=== PATIENT | female | born 1965 | race African-American/Black ===

== ENCOUNTER 2017-09-18 15:40 | Observation (INO) | payer OTHER, SELFPAY ==
--- OUTSIDE RECORDS SUMMARY | 2017-09-18 15:44 | XMS REPORT | Clinical Summary ---
:1965 Author Organization [facility] Address [address] [place] [address] Care Team Providers Name Role Phone Asked, No Pcp Primary Care Provider Unavailable Allergies Active Allergy Reactions Severity Noted Date Comments Hydrocodone 11/12/2016 Morphine 11/12/2016 Out of body experience Current Medications Prescription Sig. Disp. Refills Start Date End Date Status metoprolol succinate XL Take 50 mg by mouth Active (TOPROL-XL) 50 mg 24 hr 2 (two) times a tablet day. losartan-hydrochlorothiaz Take 1 tablet by Active lazaro (HYZAAR) 100-25 mg mouth daily. per tablet IRON FUM,PS/FOLIC Take by mouth. Active ACID/VITC/B3 (FOLIVANE-F ORAL) apixaban (ELIQUIS) 5 mg Take 5 mg by mouth Active tablet 2 (two) times a day. Active Problems Not on file Encounters Date Type Specialty Care Team Description 12/09/2016 Orders Only Cardiothoracic Surgery Alee Chaudhari MD 11/12/2016 Hospital Encounter Radiology Mina Holland MD 11/12/2016 Hospital Encounter Radiology Mina Holland MD 11/12/2016 Office Visit Cardiothoracic Surgery Mina Holland MD (Primary Dx) 11/12/2016 Ancillary Orders Mina Ortiz MD 11/12/2016 Ancillary Orders Mina Ortiz MD 11/10/2016 Orders Only Cardiothoracic Surgery Alee Chaudhari MD after 09/17/2016 Family History Medical History Relation Name Comments Diabetes Father Tarun Crohn's disease Sister Janet Colon cancer Sister Juvenal Relation Name Status Comments Father Tarun Sister Janet Sister Juvenal Social History Tobacco Use Types Packs/Day Years Used Date Current Every Day Smoker Cigarettes 0.25 5 Started: 07/08/2004 Tobacco Cessation: Counseling Given: Yes Alcohol Use Drinks/Week oz/Week Comments Yes 3 Cans of beer Sex Assigned at Date Recorded Not on file Last Filed Vital Signs Vital Sign Reading Time Taken Blood Pressure 142/90 11/12/2016 10:21 AM CDT Pulse 73 11/12/2016 10:21 AM CDT Temperature 35.9 C (96.7 F) 11/12/2016 10:21 AM CDT Respiratory Rate 18 11/12/2016 10:21 AM CDT Oxygen Saturation 96% 11/12/2016 10:21 AM CDT Inhaled Oxygen Concentration - - Weight 108 kg (238 lb 9.6 oz) 11/12/2016 10:21 AM CDT Height 157.5 cm (5' 2") 11/12/2016 10:21 AM CDT Body Mass Index 43.64 11/12/2016 10:21 AM CDT Plan of Treatment Health Maintenance Due Date Last Done Comments CERVICAL CANCER SCREENING 1988 BREAST CANCER SCREENING 2017 COLON CANCER SCREENING 2017 SHINGRIX VACCINE (#1) 2017 INFLUENZA VACCINE 10/06/2017 Procedures Procedure Name Priority Date/Time Associated Diagnosis Comments CT CHEST EXTERNAL Routine 12/08/2016 12:00 AM STUDY CDT PET CT WHOLE BODY Routine 10/28/2016 2:49 PM Results for this EXTERNAL STUDY CDT procedure are in the results section. CT CHEST EXTERNAL Routine 09/17/2016 8:05 AM Results for this STUDY CDT procedure are in the results section. CT CHEST EXTERNAL Routine 09/17/2016 12:00 AM STUDY CDT after 09/17/[address] Chest External Study (12/08/2016)Only the most recent of3 resultswithin the time period is included. Narrative Performed At PET/CT Whole Body External Study (10/28/2016 2:49 PM) Narrative Performed At This exam was not acquired at a [facility] facility and has not been [facility] interpreted by a [facility] Provider.The exam was imported into our imaging system for comparisons purposes. Performing Organization Address City/State/Zipcode Phone Number [facility] [address] [place] [address] after 09/17/2016
[2017-09-18] MEDS ORDERED: ASPIRIN 81 MG CHEWABLE TABLET ONE (16:40)
[2017-09-18] MEDS ORDERED: METOPROLOL TAR 50 MG TAB ONE (16:40)
[2017-09-18 16:46] LABS: Absolute Monocytes 0.4 K/uL (0.1-1.3); Absolute Neutrophil 1.8 K/uL (1.8-8.0); Basophils % 0.6 % (0-1.3); Eosinophils % 4.2 % (0-4.4); Hematocrit 39.8 % (36.0-45.0); Lymphocytes % 30.8 % (15.3-44.8); MCH 29.3 pg (27.0-35.0); MCV 89.1 fL (80-100); MPV 9.1 fL (7.6-11.3); Monocytes % 11.5 % (3.3-12.3); RBC Red Blood Cell Count 4.47 M/uL (3.86-4.86)
[2017-09-18 16:49] LABS: Protime INR 0.98
[2017-09-18 17:11] LABS: ALT/SGPT 25 U/L (12-78); AST/SGOT 23 U/L (15-37); Albumin 3.3 g/dL (3.4-5.0); Alkaline Phosphatase 108 U/L (45-117); BUN Blood Urea Nitrogen 14 mg/dL (7-18); Bicarbonate 32 mmol/L (21-32); Bilirubin Direct < 0.1 mg/dL (0-0.2); Bilirubin Total 0.2 mg/dL (0.2-1.0); CKMB Creatine Kinase MB 1.3 ng/mL (0.3-3.6); Creatine Phosphokinase 231 U/L (26-192); Glucose Level 92 mg/dL (74-106); Magnesium 2.4 mg/dL (1.8-2.4); NT PRO-BNP 465 pg/mL (<125); Potassium 3.3 mmol/L (3.5-5.1); Protein, Total 7.4 g/dL (6.4-8.2); Sodium Level 142 mmol/L (136-145)
--- NOTE | 2017-09-18 17:13 | RAD REPORT ---
EXAM DESCRIPTION: RAD - Chest Single View - 09/18/2017 5:03 pm CLINICAL HISTORY: Chest pain, shortness of breath COMPARISON: April 2016 TECHNIQUE: AP portable chest image was obtained 1626 hours . FINDINGS: Lung volumes are low. No peripheral mass or consolidation. Lung base infiltrates and atele ctasis can have a similar appearance. Significant failure or volume overload are doubtful. Heart and vasculature are normal. No measurable pleural effusion and no pneumothorax. No gross bony abnormality seen. No acute aortic findings suspected. IMPRESSION: Shallow inspiration film accentuates lung base markings. Atelectasis and infiltrate can have similar appearance.
--- NOTE | 2017-09-18 17:20 | RAD REPORT ---
EXAM DESCRIPTION: VAS - Extrem Venous W Compress Nemesio - 09/18/2017 5:15 pm CLINICAL HISTORY: Bilateral leg pain and swelling COMPARISON: None. TECHNIQUE: Real-time sonographic evaluation of the bilateral lower extremity deep venous systems was performed. FINDINGS: Normal compressibility, flow augmentation, phasic flow and spontaneous flow are identified in the left and right lower extremity common femoral, superficial femoral, popliteal and posterior t ibial veins. No intraluminal filling defects seen. IMPRESSION: No DVT in either lower extremity.
[2017-09-18] MEDS ORDERED: POTASSIUM CL SA 10 MEQ TAB PO ONE (17:51)
[2017-09-18] MEDS ORDERED: ALBUTEROL 2.5 MG/3 ML NEB SOL ONE (18:03)
[2017-09-18] MEDS ORDERED: IPRATROPIUM BROM 0.5MG/2.5ML ONE (18:03)
[2017-09-18] MEDS ORDERED: KETOROLAC 30 MG/ML INJ ONE (18:04)
[2017-09-18] MEDS ORDERED: METOPROLOL TARTRATE 5 MG/5 ML INJ IV ONE (18:04)
[2017-09-18 20:52] LABS: Urine Blood NEGATIVE (NEG); Urine Glucose NEGATIVE (NEG); Urine Protein 1+ (NEG); Urine Specific Gravity >1.030 (1.005-1.030); Urine pH 5.5 (5.0-7.0)
--- NOTE | 2017-09-18 20:54 | RAD REPORT ---
EXAM DESCRIPTION: CT - Chest For Pe Angio - 09/18/2017 8:34 pm CLINICAL HISTORY: Left-sided chest pain, shortness of breath COMPARISON: Chest films same date, PE study December 2016 TECHNIQUE: Dynamically enhanced 3 mm thick images of the chest were obtained during administration o f approximately 150mL Isovue 370 IV contrast. Coronal and oblique reconstruction images were generate d using maximum intensity projection techniqueand reviewed. Exam utilizes a protocol to evaluate the pulmonary arterial tree. All CT scans are performed using dose optimization technique as appropriate and may include automated exposure control or mA/KV adjustment according to patient size. FINDINGS: No pulmonary emboli are identified. The aorta as imaged shows no acute or suspicious finding. No pericardial thickening or effusion. Mild cardiomegaly suspected. No large mass or consolidation. Patchy airspace opacities are present in both lower lobes and in the right upper lobe. Minimal patchy opacification in the left upper lobe. No pleural effusion or pleural thickening. No mediastinal or hilar suspicious masses. No chest wall masses or abnormal axillary lymphadenopathy. IMPRESSION: No pulmonary emboli identified. Patchy airspace opacification is present scattered throughout all lobes.Patchy pneumonia and alveolar edema from cardiac decompensation can both have this pattern.
--- NOTE | 2017-09-18 21:14 | ER ---
Nurse's Notes [facility] Name: Yesenia Lawton Age: 52 yrs Sex: Female : 1965 Arrival Date: 09/18/2017 Time: 15:46 Bed 13 Private MD: Out, [facility] Diagnosis: Pulmonary edema;Dyspnea, unspecified;Orthopnea Presentation: 09/18 15:50 Presenting complaint: Patient states: left sided chest pain/tightness/pulling that sv started 2 days ago with SOB and radiation to the left arm and neck. c/o RLE pain and kannan knee pain and fluid. Transition of care: patient was not received from another setting of care. Onset of symptoms was September 16, 2017. Care prior to arrival: None. 15:50 Method Of Arrival: Wheelchair sv 15:50 Acuity: JOSSELYN 3 sv 21:34 Risk Assessment: Do you want to hurt yourself or someone else? Patient reports no bp desire to harm self or others. Initial Sepsis Screen: Does the patient meet any 2 criteria? No. Patient's initial sepsis screen is negative. Does the patient have a suspected source of infection? No. Patient's initial sepsis screen is negative. Triage Assessment: 19:00 General: Appears in no apparent distress. comfortable, obese, Behavior is calm, bp cooperative, appropriate for age. Respiratory: Reports shortness of breath the patient has mild shortness of breath. OFFICE ADMINISTRATION: 16:00 LMP N/A - Post-menopause rb1 Historical: - Allergies: 15:57 HYDROCODONE; sv 15:57 Vicodin; sv - Home Meds: 15:57 metoprolol tartrate Oral [Active]; losartan oral oral [Active]; Iron CR Oral [Active]; sv ibuprofen 800 mg Oral tab daily [Active]; - PMHx: 15:57 Anxiety; Hypertension; mass on heart; PE on right lung; sv - PSHx: 15:57 None; sv - Immunization history:: Adult Immunizations up to date. - Social history:: Smoking status: Patient uses tobacco products, denies chronic smoking, but will smoke occasionally. - Ebola Screening: : No symptoms or risks identified at this time. Screenin:00 Abuse screen: Denies threats or abuse. Nutritional screening: No deficits noted. rb1 Tuberculosis screening: No symptoms or risk factors identified. Fall Risk None identified. Assessment: 16:00 General: Appears in no apparent distress. comfortable, obese, Behavior is calm, rb1 cooperative, Reports fever for. Pain: Complains of pain in left calf Pain currently is 10 out of 10 on a pain scale. Pain began x 1 week. Neuro: Level of Consciousness is awake, alert, obeys commands, Oriented to person, place, time, situation. Cardiovascular: Capillary refill < 3 seconds is brisk in bilateral fingers. Respiratory: Airway is patent Respiratory effort is even, unlabored, Respiratory pattern is regular, symmetrical. GI: No signs and/or symptoms were reported involving the gastrointestinal system. : No signs and/or symptoms were reported regarding the genitourinary system. Derm: Skin is dry, Skin is normal, Skin temperature is warm. 17:00 Reassessment: Patient appears in no apparent distress at this time. No changes from rb1 previously documented assessment. Friend at bedside. 17:53 Reassessment: Patient appears in no apparent distress at this time. Patient and/or rb1 family updated on plan of care and expected duration. Pain level reassessed. Patient is alert, oriented x 3, equal unlabored respirations, skin warm/dry/pink. Pt. updated on POC. 18:17 Reassessment: Patient appears in no apparent distress at this time. Patient and/or rb1 family updated on plan of care and expected duration. Pain level reassessed. Patient is alert, oriented x 3, equal unlabored respirations, skin warm/dry/pink. 19:00 Reassessment: RECD REPORT FROM CHITO DEXTER. 52YO BF P/W SOB/CP. UOP AND CT PENDING. VS bp STABLE ON MONITOR. 21:00 Cardiovascular: Rhythm is sinus rhythm. Respiratory: Breath sounds with crackles bp bilaterally. 22:00 Reassessment: PT SEEN BY ADMIT MD, ADMIT IN PROCESS. bp Vital Signs: 15:50 BP 188 / 122; Pulse 90; Resp 22; Pulse Ox 95% ; Weight 106.14 kg; Height 5 ft. 3 in. sv (160.02 cm); Pain 10/10; 16:30 BP 158 / 113; Pulse 81; Resp 20; Pulse Ox 99% on R/A; rb1 17:30 BP 183 / 105; Pulse 68; Resp 19; Pulse Ox 98% on 4 lpm NC; rb1 18:00 BP 175 / 103; Pulse 77; Resp 20; Pulse Ox 92% on R/A; rb1 19:00 BP 168 / 88; Pulse 93; Resp 23; Pulse Ox 98% ; bp 21:00 BP 167 / 103; Pulse 91; Resp 14; Pulse Ox 95% ; bp 22:00 BP 141 / 81; Pulse 93; Resp 14; Pulse Ox 96% ; bp 23:00 BP 145 / 85; Pulse 91; Resp 14; Pulse Ox 96% ; bp 15:50 Body Mass Index 41.45 (106.14 kg, 160.02 cm) sv 18:00 Administered Nebulizer rb1 ED Course: 15:46 Patient arrived in ED. sb2 15:46 Out, of Town is Private Physician. sb2 15:56 Adolfo Sood PA is PHCP. cp 15:56 Adolfo Zapata MD is Attending Physician. cp 15:56 Triage completed. sv 16:00 Patient has correct armband on for positive identification. Placed in gown. Bed in low rb1 position. Call light in reach. Side rails up X 1. gambling monitor on. Pulse ox on. NIBP on. 16:01 Inserted saline lock: 22 gauge in right antecubital area, using aseptic technique. ss Blood collected. 16:29 Chito De La Fuente, RN is Primary Nurse. rb1 17:03 XRAY Chest (1 view) In Process Unspecified. EDMS 17:15 US Extremity Venous W Compression Kannan In Process Unspecified. EDMS 19:00 Report given to GUEIRTA Wood. rb1 19:00 Arm band placed on. bp 20:[address] via wheelchair. cw1 20:33 CT completed. Patient moved back from CT. cw1 20:34 CT Chest For PE Angio In Process Unspecified. EDMS 21:12 Israel Mathur, RN is Primary Nurse. bp 21:13 Malik Franco MD is Hospitalizing Provider. cp 21:14 Urine --Ancillary (enter results) Sent. bp 21:14 Urine Dipstick--Ancillary (enter results) Sent. bp 21:33 No provider procedures requiring assistance completed. Patient admitted, IV remains in bp place. Administered Medications: 16:35 Drug: Metoprolol 50 mg Route: PO; rb1 17:00 Follow up: Response: No adverse reaction; Blood pressure is unchanged rb1 16:35 Drug: Aspirin Chewable Tablet 324 mg Route: PO; rb1 17:00 Follow up: Response: No adverse reaction rb1 17:50 Drug: Potassium Chloride 40 mEq Route: PO; rb1 21:14 Follow up: Response: No adverse reaction bp 18:00 Drug: Lopressor 5 mg Route: IVP; Site: right antecubital; rb1 21:13 Follow up: Response: No adverse reaction; Marked relief of symptoms bp 18:00 Drug: TORadol 30 mg Route: IVP; Site: right antecubital; rb1 21:13 Follow up: Response: No adverse reaction bp 18:00 Drug: Albuterol - atroVENT (3:1) (2.5 mg - 0.5 mg) 3 ml Route: Nebulizer; rb1 21:14 Follow up: Response: No adverse reaction bp 21:30 Drug: Lasix 20 mg Route: IVP; Site: right antecubital; bp 22:13 Follow up: Response: No adverse reaction bp 21:45 Drug: fentaNYL (PF) 25 mcg Route: IVP; Site: right antecubital; bp 22:13 Follow up: Response: Pain is decreased bp Outcome: 21:14 Decision to Hospitalize by Provider. cp 23:46 Admitted to Tele accompanied by tech, via wheelchair, room 403, with chart, Report bp called to NICOLAS DEXTER 23:46 Condition: stable 23:46 Instructed on the need for admit. 09/19 00:08 Patient left the ED. bp Signatures: Dispatcher [employer] Natasha Tyson RN Asia Hodge RN RN ss Woodley, Crystal cw1 Adolfo Sood PA PA cp Chito De La Fuente, RN RN rb1 Israel Mathur RN RN Radha Carlson sb2
--- NOTE | 2017-09-18 21:14 | EDPHYS ---
Physician Documentation [facility] Name: Yesenia Lawton Age: 52 yrs Sex: Female : 1965 Arrival Date: 09/18/2017 Time: 15:46 Bed 13 Private MD: Out, [facility] ED Physician Adolfo Zapata HPI: 09/18 16:04 This 52 yrs old Black Female presents to ER via Wheelchair with complaints of Shortness cp Of Breath, Chest Pressure, Arm Pain, Leg Pain. 16:05 The patient or guardian reports chest pain that is located primarily in the anterior cp chest wall. 16:05 The patient has shortness of breath that woke him/her from sleep. Duration: The cp symptoms are continuous, and are steadily getting worse. The patient's shortness of breath is aggravated by exertion, supine position. Onset: 2 day(s) ago. The pain radiates to left neck. Associated signs and symptoms: Pertinent negatives: productive cough, diaphoresis, fever. The chest pain is described as tightness. 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 - Social history:: Smoking status: Patient uses tobacco products, denies chronic smoking, but will smoke occasionally. - Ebola Screening: : No symptoms or risks identified at this time. ROS: 16:10 Constitutional: Negative for body aches, chills, fever, poor PO intake. cp 16:10 Eyes: Negative for injury, pain, redness, and discharge. cp 16:10 ENT: Negative for drainage from ear(s), ear pain, sore throat, difficulty swallowing, difficulty handling secretions. 16:10 Cardiovascular: Positive for chest pain, Negative for edema, palpitations. 16:10 Respiratory: Positive for dyspnea on exertion, orthopnea, shortness of breath, on exertion. Negative for cough, wheezing. 16:10 Abdomen/GI: Negative for abdominal pain, nausea, vomiting, and diarrhea, constipation, black/tarry stool, rectal bleeding. 16:10 Back: Negative for pain at rest, pain with movement, radiated pain. 16:10 : Negative for urinary symptoms. 16:10 MS/extremity: Negative for injury or acute deformity, decreased range of motion, deformity, paresthesias, tenderness. 16:10 Skin: Negative for cellulitis, rash. 16:10 Neuro: Negative for altered mental status, headache, syncope, near syncope, weakness. 16:10 All other systems are negative. Exam: 16:08 ECG was reviewed by the Attending Physician. cp 16:13 Constitutional: The patient appears in no acute distress, alert, awake, cp non-diaphoretic, non-toxic, well developed, well nourished. 16:13 Head/Face: Normocephalic, atraumatic. Eyes: Pupils equal round and reactive to light, cp extra-ocular motions intact. Lids and lashes normal. Conjunctiva and sclera are non-icteric and not injected. Cornea within normal limits. Periorbital areas with no swelling, redness, or edema. ENT: Nares patent. No nasal discharge, no septal abnormalities noted. Tympanic membranes are normal and external auditory canals are clear. Oropharynx with no redness, swelling, or masses, exudates, or evidence of obstruction, uvula midline. Mucous membranes moist. Neck: Trachea midline, no thyromegaly or masses palpated, and no cervical lymphadenopathy. Supple, full range of motion without nuchal rigidity, or vertebral point tenderness. No Meningismus. Chest/axilla: Normal chest wall appearance and motion. Nontender with no deformity. No lesions are appreciated. 16:13 Cardiovascular: Rate: normal, Rhythm: regular, Edema: is not appreciated, JVD: is not appreciated. 16:13 Respiratory: the patient does not display signs of respiratory distress, Respirations: normal, no use of accessory muscles, no retractions, no splinting, no tachypnea, labored breathing, is not present, Breath sounds: are clear throughout, no decreased breath sounds, no stridor, no wheezing. 16:13 Abdomen/GI: Inspection: abdomen appears normal, Bowel sounds: active, all quadrants, Palpation: abdomen is soft and non-tender, in all quadrants, rebound tenderness, is not appreciated, voluntary guarding, is not appreciated, involuntary guarding, is not appreciated. 16:13 Musculoskeletal/extremity: Extremities: grossly normal except: noted in the left calf: pain, tenderness, noted in the right calf: tenderness. 16:13 Skin: cellulitis, is not appreciated, no rash present. 16:13 Neuro: Orientation: to person, place \T\ time. Mentation: lucid, able to follow commands, Cerebellar function: is grossly normal, Motor: moves all fours, strength is normal, Sensation: no obvious gross deficits. 22:18 ECG was reviewed by the Attending Physician. cp Vital Signs: 15:50 BP 188 / 122; Pulse 90; Resp 22; Pulse Ox 95% ; Weight 106.14 kg; Height 5 ft. 3 in. sv (160.02 cm); Pain 10/10; 16:30 BP 158 / 113; Pulse 81; Resp 20; Pulse Ox 99% on R/A; rb1 17:30 BP 183 / 105; Pulse 68; Resp 19; Pulse Ox 98% on 4 lpm NC; rb1 18:00 BP 175 / 103; Pulse 77; Resp 20; Pulse Ox 92% on R/A; rb1 19:00 BP 168 / 88; Pulse 93; Resp 23; Pulse Ox 98% ; bp 21:00 BP 167 / 103; Pulse 91; Resp 14; Pulse Ox 95% ; bp 22:00 BP 141 / 81; Pulse 93; Resp 14; Pulse Ox 96% ; bp 23:00 BP 145 / 85; Pulse 91; Resp 14; Pulse Ox 96% ; bp 15:50 Body Mass Index 41.45 (106.14 kg, 160.02 cm) sv 18:00 Administered Nebulizer rb1 MDM: 15:57 Patient medically screened. cp 17:08 ED course: Received verbal report from [employer] Mayra bustillo, that bilateral LE DVT studies cp negative. 21:05 Data reviewed: vital signs, nurses notes, lab test result(s), EKG, radiologic studies, cp CT scan, plain films. 21:05 Differential diagnosis: asthma, Bronchitis CHF exacerbation, Chronic Obstructive cp Pulmonary Disease abnormal EKG, acute myocardial infarction, acute pericarditis, chest wall pain, Myocardial Infarction pneumonia, pulmonary edema. Test interpretation: by ED physician or midlevel provider: ECG, plain radiologic studies. 21:12 The patient was given aspirin in the Emergency Department. Physician consultation: roxanne Franco MD was called at 21:13, was contacted at 21:13, regarding admission, to the telemetry unit. patient's condition. 09/18 16:13 Order name: Basic Metabolic Panel; Complete Time: 17:14 cp 09/18 17:14 Interpretation: Normal except: K 3.3; GFR 80. cp 09/18 16:13 Order name: CBC with Diff; Complete Time: 17:14 cp 09/18 17:15 Interpretation: Normal except: WBC 3.4; MCV 89.1; MCH 29.3. cp 09/18 16:13 Order name: Ckmb; Complete Time: 17:14 cp 09/18 16:13 Order name: CPK; Complete Time: 17:14 cp 09/18 18:12 Interpretation: Abnormal: CPK 231. cp 09/18 16:13 Order name: LFT's; Complete Time: 17:14 cp 09/18 18:12 Interpretation: Normal except: ALB 3.3; GLOB 4.1; A/G 0.8. cp 09/18 16:13 Order name: Magnesium; Complete Time: 17:14 cp 09/18 16:13 Order name: NT PRO-BNP; Complete Time: 17:14 cp 09/18 17:15 Interpretation: Abnormal: NT PRO-BNP 465. cp 09/18 16:13 Order name: PT-INR; Complete Time: 17:14 cp 09/18 16:13 Order name: Ptt, Activated; Complete Time: 17:14 cp 09/18 16:13 Order name: Troponin (emerg Dept Use Only); Complete Time: 17:14 cp 09/18 18:14 Interpretation: TROPED < 0.02; Reviewed. cp 09/18 17:17 Order name: D-Dimer; Complete Time: 17:46 cp 09/18 18:12 Interpretation: Abnormal: D-DIMER 743. cp 09/18 17:17 Order name: LAB Add On cp 09/18 19:27 Order name: Troponin I: repeat \T\2000 cp 09/18 20:16 Order name: Urine Dipstick--Ancillary (enter results) eb 09/18 15:55 Order name: EKG; Complete Time: 15:55 sv 09/18 16:13 Order name: XRAY Chest (1 view); Complete Time: 17:14 cp 09/18 16:13 Order name: US Extremity Venous W Compression Nemesio; Complete Time: 17:46 cp 09/18 17:38 Order name: CT Chest For PE Angio; Complete Time: 20:59 cp 09/18 19:27 Order name: EKG: repeat \T\1999; Complete Time: 19:28 cp 09/18 20:16 Order name: Urine --Ancillary (enter results) eb 09/18 20:17 Order name: Urine Dipstick-Ancillary; Complete Time: 20:59 EDMS 09/18 20:17 Order name: Urine --Ancillary; Complete Time: 20:59 EDMS 09/18 15:55 Order name: EKG - Nurse/Tech; Complete Time: 16:00 sv 09/18 16:13 Order name: Cardiac monitoring; Complete Time: 19:04 cp 09/18 16:13 Order name: IV Saline Lock; Complete Time: 16:42 cp 09/18 16:13 Order name: Labs collected and sent; Complete Time: 16:42 cp 09/18 16:13 Order name: O2 Per Protocol; Complete Time: 16:45 cp 09/18 16:13 Order name: O2 Sat Monitoring; Complete Time: 16:45 cp 09/18 16:13 Order name: Urine Dipstick-Ancillary (obtain specimen); Complete Time: 22:14 cp 09/18 16:13 Order name: Urine Test (obtain specimen); Complete Time: 22:14 cp 09/18 19:27 Order name: EKG - Nurse/Tech: repeat \T\1999; Complete Time: 22:12 cp EC:08 Rate is 85 beats/min. Rhythm is regular. DC interval is normal. QRS interval is normal. cp QT interval is normal. T waves are Inverted in lead III. Interpreted by me. Reviewed by me. 22:18 Rate is 71 beats/min. Rhythm is regular. DC interval is normal. QRS interval is normal. cp QT interval is normal. No ST changes noted. Interpreted by me. Reviewed by me. Administered Medications: 16:35 Drug: Metoprolol 50 mg Route: PO; rb1 17:00 Follow up: Response: No adverse reaction; Blood pressure is unchanged rb1 16:35 Drug: Aspirin Chewable Tablet 324 mg Route: PO; rb1 17:00 Follow up: Response: No adverse reaction rb1 17:50 Drug: Potassium Chloride 40 mEq Route: PO; rb1 21:14 Follow up: Response: No adverse reaction bp 18:00 Drug: Lopressor 5 mg Route: IVP; Site: right antecubital; rb1 21:13 Follow up: Response: No adverse reaction; Marked relief of symptoms bp 18:00 Drug: TORadol 30 mg Route: IVP; Site: right antecubital; rb1 21:13 Follow up: Response: No adverse reaction bp 18:00 Drug: Albuterol - atroVENT (3:1) (2.5 mg - 0.5 mg) 3 ml Route: Nebulizer; rb1 21:14 Follow up: Response: No adverse reaction bp 21:30 Drug: Lasix 20 mg Route: IVP; Site: right antecubital; bp 22:13 Follow up: Response: No adverse reaction bp 21:45 Drug: fentaNYL (PF) 25 mcg Route: IVP; Site: right antecubital; bp 22:13 Follow up: Response: Pain is decreased bp Disposition: 09/19 06:49 Co-signature as Attending Physician, Adolfo Zapata MD I agree with the assessment and [facility] plan of care. Disposition: 09/18/17 21:14 Hospitalization ordered by Malik Franco for Observation. Preliminary diagnosis are Pulmonary edema, Dyspnea, unspecified, Orthopnea. - Bed requested for Telemetry/MedSurg (observation). - Status is Observation. bp - Condition is Stable. - Problem is new. - Symptoms have improved. UTI on Admission? No Signatures: Dispatcher [employer] Yesenia Padilla RN RN kl Verde, Stephanie, RN RN sv Anderson, Corey, MD MD cha Page, Corey, PA PA cp Barber, Rebecca RN RN Israel Fairchild RN RN bp Corrections: (The following items were deleted from the chart) 09/18 21:13 21:12 Physician consultation: Malik Franco MD [facility] 22:11 21:14 Hospitalization Ordered by Malik Franco MD for Observation. Preliminary kl diagnosis is Pulmonary edema; Dyspnea, unspecified; Orthopnea. Bed requested for Telemetry/MedSurg (observation). Status is Observation. Condition is Stable. Problem is new. Symptoms have improved. UTI on Admission? No. cp 09/19 00:08 09/18 22:11 09/18/2017 21:14 Hospitalization Ordered by Malik Franco MD for bp Observation. Preliminary diagnosis is Pulmonary edema; Dyspnea, unspecified; Orthopnea. Bed requested for Telemetry/MedSurg (observation). Status is Observation. Condition is Stable. Problem is new. Symptoms have improved. UTI on Admission? No. kl
[2017-09-18] MEDS ORDERED: FUROSEMIDE 20 MG/ 2ML VIAL ONE (21:21)
[2017-09-18] MEDS ORDERED: FENTANYL CITR 100 MCG/2 ML ONE (21:53)
--- NOTE | 2017-09-18 22:50 | P.HP ---
Certification for Inpatient Patient admitted to: Inpatient With expected LOS: >2 Midnights Practitioner: I am a practitioner with admitting privileges, knowledge of patient current condition, hospital course, and medical plan of care. Services: Services provided to patient in accordance with Admission requirements found in Title 42 Section 412.3 of the Code of Federal Regulations Patient History Date of Service: 09/18/17 Reason for admission: dyspnea History of Present Illness: Ms Lawton is a 52 yers old woman with history of HTN, PE, who start about 3 days ago with progressive SOB associated with productive cough. Her secretions are yellowish. She denied fever but has had chills. She states that is not able to sleep flat, and is using about 3 pillows. She is also complaining of left calf pain. The patient has had tightness in her chest as sell, lasting for 20 minutes, radiated to her neck and left arm. No nausea, diaphoresis or dizzines associated. Lab work shows WBC 3.4K, D-dimer was elevated, CTA shows no PE but bilateral patchy infiltrate. The patient is afebrile in ER, O2 sat 92% on RA. Allergies hydrocodone Allergy (Verified 05/05/16 16:55) Unknown morphine Allergy (Verified 05/06/16 18:37) Nausea/Vomiting Home medications list reviewed: Yes Home Medications: Citalopram [Celexa*] 20 mg PO DAILY 05/05/16 Losartan Potassium [Cozaar*] 50 mg PO BID 05/05/16 Metoprolol Tartrate 50 mg PO BID 05/05/16 Apixaban [Eliquis] 5 mg PO BID #60 tablet 05/07/16 ALPRAZolam [Xanax*] 0.5 mg PO TID PRN #21 tab 05/08/16 Fluticasone/Salmeterol [Advair 250/50 Diskus*] 1 puff IH BID disk 05/08/16 hydroCHLOROthiazide [Hydrochlorothiazide*] 12.5 mg PO DAILY #30 cap 05/08/16 - Past Medical/Surgical History Diabetic: No -: Hypertension -: Anemia -: PE -: Tubal ligation Psychosocial/ Personal History: She is single, has 4 children. 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 - Family History Mother -: Heart disease, Hypertension, GI disease, Diabetes, Cancer Sister -: GI disease, Cancer - Social History Smoking Status: Light Tobacco smoker (1-9 cigarettes/day) Counseled patient to stop smoking for: less than 10 minutes Smoking therapy provided: Yes Patient receptive to therapy: No Alcohol use: Yes CD- Drugs: No Caffeine use: Yes Place of Residence: Home Review of Systems 10-point ROS is otherwise unremarkable Physical Examination - Physical Exam General: Alert, In no apparent distress HEENT: Atraumatic, PERRLA, Mucous membr. moist/pink, EOMI, Sclerae nonicteric Neck: Supple, 2+ carotid pulse no bruit, No LAD, Without JVD or thyroid abnormality Respiratory: Diminished, Crackles/rales (bibasilar crackles), Expiratory wheezes Cardiovascular: Regular rate/rhythm, Normal S1 S2 Gastrointestinal: Normal bowel sounds, No tenderness Musculoskeletal: No tenderness Integumentary: No rashes Neurological: Normal speech, Normal strength at 5/5 x4 extr, Normal tone, Normal affect Lymphatics: No axilla or inguinal lymphadenopathy - Studies Laboratory Data (last 24 hrs) 09/18/17 20:45: Troponin I < 0.02 09/18/17 16:00: PT 11.6, INR 0.98, APTT 26.0 09/18/17 16:00: WBC 3.4 L, Hgb 13.1, Hct 39.8, Plt Count 218 09/18/17 16:00: Sodium 142, Potassium 3.3 L, BUN 14, Creatinine 0.90, Glucose 92 , Magnesium 2.4, Total Bilirubin 0.2, AST 23, ALT 25, Alkaline Phosphatase 108 Assessment and Plan - Problems (Diagnosis) (1) Dyspnea Current Visit: Yes Status: Acute (2) Pneumonia Current Visit: Yes Status: Acute Qualifiers: Pneumonia type: due to unspecified organism Laterality: bilateral Lung location: lower lobe of lung Qualified Code(s): J18.1 - Lobar pneumonia, unspecified organism (3) Tobacco abuse Current Visit: No Status: Chronic - Plan The patient will be admitted to the hospital due to progressive dyspnea likely due to pneumonia. Will order an ECHO to evaluate cardiac function due to possible CHF. Previous CT chest was remarkable for a mediastinal mass, which is not seen in this current CT scan. Will order blood and sputum culture. Empiric IV antibiotics, breathing treatments as well. serial troponin I and EKG. Consult Cardiology for recurrent chest pain episodes. - Advance Directives Does patient have a Living Will: No Does patient have a Durable POA for Healthcare: No - Code Status/Comfort Care Code Status Assessed: Yes Code Status: Full Code
[2017-09-18] MEDS ORDERED: ACETAMINOPHEN 500 MG TAB PO PRN (23:45)
[2017-09-18] MEDS ORDERED: ONDANSETRON 4 MG/2 ML VIAL IV PRN (23:45)
[2017-09-19] MEDS: IPRATROPIUM BROM 0.5MG/2.5ML NEB SCH ×7 (00:05→23:01)
[2017-09-19] MEDS: ALBUTEROL 2.5 MG/3 ML NEB SOL NEB SCH ×7 (00:05→23:01)
[2017-09-19] MEDS ORDERED: NA CHLORIDE 0.9% 1,000 ML ONE (01:15)
[2017-09-19] MEDS ORDERED: DICYCLOMINE HCL 10 MG CAP ONE (01:15)
[2017-09-19] MEDS: TRAMADOL HCL 50 MG TAB PO PRN ×3 (01:31→20:58)
[2017-09-19 05:31] LABS: Absolute Lymphocytes (CBC) 1.1 K/uL (0.7-4.9); Absolute Monocytes 0.3 K/uL (0.1-1.3); Absolute Neutrophil 1.4 K/uL (1.8-8.0); Basophils % 0.5 % (0-1.3); Eosinophils % 5.6 % (0-4.4); Hematocrit 39.4 % (36.0-45.0); Lymphocytes % 36.5 % (15.3-44.8); MPV 8.6 fL (7.6-11.3); Monocytes % 11.1 % (3.3-12.3); RBC Red Blood Cell Count 4.43 M/uL (3.86-4.86)
[2017-09-19 05:47] LABS: Potassium 3.2 mmol/L (3.5-5.1)
[2017-09-19] MEDS ORDERED: POTASSIUM 25 MEQ EFFERV TAB PO ONE (06:25)
[2017-09-19] MEDS: APIXABAN 5 MG TABLET PO SCH ×2 (08:30→20:59)
[2017-09-19] MEDS: AZITHROMYCIN IV 500 MG in NA CHLORIDE 0.9% 250 ML IVPB SCH (08:31)
[2017-09-19] MEDS: CEFTRIAXONE/SWI 1gm 1 GM/10 ML SYR IVP SCH (08:31)
[2017-09-19] MEDS ORDERED: CEFTRIAXONE 1 GM/NS 50 ML 1 GM/50 ML BAG IV SCH (09:00)
--- NOTE | 2017-09-19 09:29 | EKG ---
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
--- NOTE | 2017-09-19 09:30 | EKG ---
Test Date: 2017-09-18 Test Time: 16:00:15 Store Shopper: MARK MEASUREMENT RESULTS: Intervals: Rate: 85 TN: 136 QRSD: 72 QT: 368 QTc: 437 [place]: P: 68 TN: 136 QRS: 33 T: 8 INTERPRETIVE STATEMENTS: Normal sinus rhythm Normal ECG Compared to ECG 05/05/2016 08:28:08 Sinus bradycardia no longer present ST (T wave) deviation no longer present Electronically Signed On 09-19-17 09:28:03 CDT by Nick Holland
[2017-09-19] MEDS: METOPROLOL TAR 50 MG TAB PO SCH ×2 (10:05→20:59)
[2017-09-19] MEDS: LOSARTAN POTASSIUM 50 MG TABLET PO SCH (10:06)
[2017-09-19] MEDS: LOSARTAN/HCTZ 50-12.5 PO SCH (10:06)
--- NOTE | 2017-09-19 12:57 | P.PN ---
Subjective Date of Service: 09/19/17 Chief Complaint: dyspnea Subjective: No new changes, No C/O voiced, Doing well Review of Systems General: As per HPI Physical Examination - Vital Signs Temperature: 97.0 F Blood Pressure: 166/93 Pulse: 67 Respirations: 18 Pulse Ox (%): 98 - Physical Exam General: Alert, Oriented x3, Mild distress HEENT: Atraumatic, PERRLA, EOMI Neck: Supple, JVD not distended Respiratory: Normal air movement, Crackles/rales, Expiratory wheezes, Inspiratory wheezes Cardiovascular: Regular rate/rhythm, Normal S1 S2 Gastrointestinal: Normal bowel sounds, Soft and benign, Non-distended, No tenderness Musculoskeletal: No tenderness Integumentary: No rashes Neurological: Normal speech, Normal tone, Normal affect Lymphatics: No axilla or inguinal lymphadenopathy - Studies Laboratory Data (last 24 hrs) 09/18/17 20:45: Troponin I < 0.02 09/18/17 16:00: PT 11.6, INR 0.98, APTT 26.0 09/18/17 16:00: WBC 3.4 L, Hgb 13.1, Hct 39.8, Plt Count 218 09/18/17 16:00: Sodium 142, Potassium 3.3 L, BUN 14, Creatinine 0.90, Glucose 92 , Magnesium 2.4, Total Bilirubin 0.2, AST 23, ALT 25, Alkaline Phosphatase 108 Medications List Reviewed: Yes Assessment & Plan - Problems (Diagnosis) (1) Dyspnea Current Visit: Yes Status: Acute Plan: Dyspnea with Orthopnea. Most likely CHF exacerbation -Cardiology consulted. Appreciated Reccs -On oxygen, Duonebs for now -Xray with Concerns for PNA. Sputum Cutlure pending. On Azithromycin for now -Will f.u with Culture and Cards -Pulmonology unavailable at this time. Qualifiers: Dyspnea type: orthopnea Qualified Code(s): R06.01 - Orthopnea (2) CHF (congestive heart failure) Onset Date: 05/06/16 Current Visit: No Status: Acute Plan: Acute CHF exacerbation. -ECHO pending -Stress test scheduled as well -Cardiology consulted -IV lasix Qualifiers: Heart failure type: unspecified Heart failure chronicity: acute on chronic Qualified Code(s): I50.9 - Heart failure, unspecified (3) GERD (gastroesophageal reflux disease) Current Visit: No Status: Chronic Qualifiers: Esophagitis presence: esophagitis presence not specified Qualified Code(s) : K21.9 - Gastro-esophageal reflux disease without esophagitis (4) Hypertension Current Visit: No Status: Chronic Qualifiers: Hypertension type: essential hypertension Qualified Code(s): I10 - Essential (primary) hypertension (5) Tobacco abuse Current Visit: No Status: Chronic Discharge Plan: Home Plan to discharge in: 48 Hours - Code Status/Comfort Care Code Status Assessed: Yes Critical Care: No
--- NOTE | 2017-09-19 14:22 | CON ---
Date of Consultation: 09/19/[address] Burkett's service on 09/18/2017. I saw the patient on 09/19/2017. Reason For Consultation: Chest pain and shortness of breath. History Of Present Illness: Ms. Lawton is a 52-year-old black woman who has a history of COPD, hyper tension. She has a history of pulmonary embolus in May of 2016. She had a negative echocardiogram , then has been on Eliquis since. Comes in with multiple complaints including chest pain that is pre ssure like sensation, radiating to the neck and posteriorly. She also had left arm pain, left leg pa in, muscle cramps in both legs. Has been having some difficulty with her chronic obstructive pulmona ry disease. Has been taking her inhalers on a regular basis. Came in with negative troponin. 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 She had a CT angiogram, which was negative. Her D-dimer was elevated. S he had a white count of 3.1. She was hypertensive at 170/90. Denied PND, orthopnea, pedal edema, pa lpitations, or syncope. Allergies: SHE IS ALLERGIC TO VICODIN AND HYDROCODONE. Social History: Positive for tobacco. Family History: Positive for heart disease. Review of Systems: Negative. Medications At Home: Supposed to be metoprolol, Hyzaar inhalers, and Eliquis. Physical Examination: General: She was hypertensive, slightly anxious. No pain reported. Then she is in sinus rhythm. HEENT: Negative. Neck: Supple without any bruit, lymphadenopathy, JVD, or thyromegaly. Chest: Clear to auscultation and percussion. Cardiac: Revealed a regular rhythm and rate without any murmurs, gallops, or rubs. Abdomen: Benign. Extremities: Revealed no clubbing, cyanosis, or edema. Diagnostic Data: As stated earlier. EKG was unremarkable. Chest x-ray is unremarkable. Impression And Plan: Atypical chest pain in that it is radiating to the posterior neck and also had left and right leg pain with it, which is very unusual from a cardiac standpoint. She is at high ris k of heart disease. She has hypertension. She smokes, has a family history. Has had a history of P E before for which she is taking Eliquis still. I recommend to do an echocardiogram and a Lexiscan o n her before a final decision is made. Her blood pressure is elevated. We need to resume her metopr olol and Hyzaar. Her potassium of 3.2 may have contributed to some of the leg pain. This probably i s secondary to the inhaler therapy. Her D-dimer was elevated with negative CTA and her white count i s slightly on the low side and that need to be addressed. Should be at least followed up in the near future. I will follow the patient along. RADHAMES/ELAINE Voice ID: [id number] Report ID: [id number]
[2017-09-19] MEDS ORDERED: POTASSIUM CL SA 10 MEQ TAB PO ONE (16:00)
[2017-09-20 04:21] LABS: BUN Blood Urea Nitrogen 15 mg/dL (7-18); Bicarbonate 33 mmol/L (21-32); Glucose Level 104 mg/dL (74-106); Potassium 3.8 mmol/L (3.5-5.1); Sodium Level 142 mmol/L (136-145)
[2017-09-20] MEDS ORDERED: POTASSIUM CL SA 10 MEQ TAB PO ONE (04:25)
[2017-09-20] MEDS: ALBUTEROL 2.5 MG/3 ML NEB SOL NEB SCH ×2 (05:01→07:41)
[2017-09-20] MEDS: IPRATROPIUM BROM 0.5MG/2.5ML NEB SCH ×2 (05:02→07:41)
[2017-09-20 05:26] VITALS: BMI 41.8
[2017-09-20] MEDS ORDERED: REGADENOSON 0.4 MG/5 ML SYR IV ONE (07:58)
[2017-09-20 08:02] VITALS: TEMP 97.1
[2017-09-20] MEDS: AZITHROMYCIN IV 500 MG in NA CHLORIDE 0.9% 250 ML IVPB SCH (09:29)
[2017-09-20] MEDS: CEFTRIAXONE/SWI 1gm 1 GM/10 ML SYR IVP SCH (09:29)
[2017-09-20] MEDS: METOPROLOL TAR 50 MG TAB PO SCH (09:29)
[2017-09-20] MEDS: APIXABAN 5 MG TABLET PO SCH (09:30)
[2017-09-20] MEDS: LOSARTAN/HCTZ 50-12.5 PO SCH (09:30)
[2017-09-20] MEDS: LOSARTAN POTASSIUM 50 MG TABLET PO SCH (09:30)
[2017-09-20] MEDS: TRAMADOL HCL 50 MG TAB PO PRN (09:30)
--- NOTE | 2017-09-20 09:39 | TREADPHA ---
DX: CHEST PAIN Date of Study: 09/20/17 Ht: 5 3 Wt: 236 lb 1.6 oz Consulting Physician: ION MEDICATIONS: TYLENOL, PRVENTIL, ELIGNIS, ROCEPHIN, HYZAAR, COZAAR, LOPRESSOR, ZOFRAN, ULTRAM HISTORY: 52 YEAR OLD FEMALE WITH COMPLAINTS OF CHEST PAIN. HISTORY OF HYPERTENSION, CURRENT SMOKER, PULMONARY EMBOLISM. PHYSICIAL EXAMINATION: RESTING B.P.: 190/101 RESTING H.R.: 78 RESTING EKG: NORMAL PROTOCOL: LEXISCAN EXERCISE TIME: 3:30 B.P. AT PEAK STRESS: 199/124 IMPRESSION: LEXISCAN INJECTED, CARDIOLITE INJECTED PER PROTOCOL, SEE NUCLEAR MEDICINE REPORT. NO CHEST PAIN. NO VENTRICULAR OR SUPRA VENTRICULAR TACHYCARDIA. NON DIAGNOSTIC EKG WITH LEXISCAN STRESS.
--- NOTE | 2017-09-20 10:21 | RAD REPORT ---
EXAM DESCRIPTION: NM - Rest Stress Cardiac Imaging - 09/20/2017 9:37 am CLINICAL HISTORY: Chest pain. COMPARISON: None. TECHNIQUE: The patient was administered approximately 10mCi of Tc 99m Sestamibi prior to resting SPE CT imaging of the heart. The patient was then administered approximately 30 mCi of Tc 99m Sestamibi f ollowing exercise or pharmacologic stress. Multiplanar SPECT images were reviewed. FINDINGS: There is uniformity of radiotracer uptake involving the entire left ventricular myocardiu m on rest and stress images The left ventricular ejection fraction equals 56% IMPRESSION: Negative for a myocardial perfusion defect
--- NOTE | 2017-09-20 11:40 | P.DS ---
Admission Date: 09/18/17 Discharge Date: 09/20/17 Disposition: ROUTINE DISCHARGE Discharge Condition: GOOD Reason for Admission: dyspnea - Problems (1) Dyspnea Onset Date: 09/20/17 Current Visit: Yes Status: Acute Qualifiers: Dyspnea type: orthopnea Qualified Code(s): R06.01 - Orthopnea (2) CHF (congestive heart failure) Onset Date: 05/06/16 Current Visit: No Status: Acute Qualifiers: Heart failure type: unspecified Heart failure chronicity: acute on chronic Qualified Code(s): I50.9 - Heart failure, unspecified (3) GERD (gastroesophageal reflux disease) Current Visit: No Status: Chronic Qualifiers: Esophagitis presence: esophagitis presence not specified Qualified Code(s) : K21.9 - Gastro-esophageal reflux disease without esophagitis (4) Hypertension Current Visit: No Status: Chronic Qualifiers: Hypertension type: essential hypertension Qualified Code(s): I10 - Essential (primary) hypertension (5) Tobacco abuse Onset Date: 09/20/17 Current Visit: Yes Status: Chronic Brief History of Present Illness: Ms Lawton is a 52 yers old woman with history of HTN, PE, who start about 3 days ago with progressive SOB associated with productive cough. Her secretions are yellowish. She denied fever but has had chills. She states that is not able to sleep flat, and is using about 3 pillows. She is also complaining of left calf pain. The patient has had tightness in her chest as sell, lasting for 20 minutes, radiated to her neck and left arm. No nausea, diaphoresis or dizzines associated. Lab work shows WBC 3.4K, D-dimer was elevated, CTA shows no PE but bilateral patchy infiltrate. The patient is afebrile in ER, O2 sat 92% on RA. Hospital Course: Overall during the hospital stay patient remained stable Patient was initially admitted to the hospital for dyspnea most likely secondary to pulmonary infection and some mild congestion as well. Patient was started on her home medication of beta-iqra and losartan along with nebulizer treatments in the ER. Cardiology was consulted who recommended that patient get an echocardiogram done here with a stress test. Patient's stress was done which was negative for any acute abnormality. Echocardiogram was within normal limits and thus patient was discharged home under stable condition after improvement in her dyspnea. Patient was asked to continue taking all medications as prescribed no new medications were needed. Patient was given a prescription for azithromycin for pneumonia Vital Signs/Physical Exam: Temp Pulse Resp BP Pulse Ox 97.1 F 65 18 166/88 H 92 09/20/17 08:00 09/20/17 09:30 09/20/17 08:00 09/20/17 09:30 09/20/17 10:21 General: Alert, In no apparent distress HEENT: Atraumatic, PERRLA, EOMI Neck: Supple, JVD not distended Respiratory: Clear to auscultation bilaterally, Normal air movement Cardiovascular: Regular rate/rhythm, Normal S1 S2 Gastrointestinal: Normal bowel sounds, No tenderness Musculoskeletal: No tenderness Integumentary: No rashes Neurological: Normal speech, Normal tone, Normal affect Lymphatics: No axilla or inguinal lymphadenopathy Laboratory Data at Discharge: WBC 3.1 K/uL (4.3-10.9) L 09/19/17 05:19 Hgb 13.3 g/dL (12.0-15.0) 09/19/17 05:19 Hct 39.4 % (36.0-45.0) 09/19/17 05:19 Plt Count 189 K/uL (152-406) 09/19/17 05:19 PT 11.6 SECONDS (9.5-12.5) 09/18/17 16:00 INR 0.98 09/18/17 16:00 APTT 26.0 SECONDS (24.3-36.9) 09/18/17 16:00 Sodium 142 mmol/L (136-145) 09/20/17 03:51 Potassium 3.8 mmol/L (3.5-5.1) 09/20/17 03:51 BUN 15 mg/dL (7-18) 09/20/17 03:51 Creatinine 0.80 mg/dL (0.55-1.3) 09/20/17 03:51 Glucose 104 mg/dL (74-106) 09/20/17 03:51 Magnesium 2.0 mg/dL (1.8-2.4) 09/20/17 03:51 Total Bilirubin 0.2 mg/dL (0.2-1.0) 09/18/17 16:00 AST 23 U/L (15-37) 09/18/17 16:00 ALT 25 U/L (12-78) 09/18/17 16:00 Alkaline Phosphatase 108 U/L (45-117) 09/18/17 16:00 Troponin I < 0.02 ng/mL (0.0-0.045) 09/19/17 15:56 Home Medications: Metoprolol Tartrate 50 mg PO BID 05/05/16 Fluticasone/Salmeterol [Advair Hfa 115-21 Mcg Inhaler] 2 puff IH PRN PRN Losartan/Hydrochlorothiazide [Losartan-Hctz 100-12.5 mg Tab] 1 tab PO DAILY Pnv #15/Iron Fum,Ps/Folic Acid [Folivane-Ob Capsule] 1 cap PO DAILY 09/19/17 Albuterol Neb [Proventil 0.083% Neb Soln] 2.5 mg NEB [id number] #1 amp 09/20/17 Azithromycin [Zithromax] 250 mg PO ZPAK #1 raysa 09/20/17 New Medications: Albuterol Neb [Proventil 0.083% Neb Soln] 2.5 mg NEB [id number] #1 amp Azithromycin [Zithromax] 250 mg PO ZPAK #1 arysa Patient Discharge Instructions: Please f.u with PCP in 1 week. Please f.u with Cardiology and Pulmonology in 1 week post discharge. New medication. Derick as directed 1 packet Diet: Regular Activity: Ad ju Followup: Matthew Otero MD [ACTIVE - CAN ADMIT] - 1-2 Weeks Nick Holland MD [ACTIVE - CAN ADMIT] - 1 Week
[2017-09-20 12:07] VITALS: BP 160/98
--- NOTE | 2017-09-20 15:07 | ECHO ---
HEIGHT: 5 ft 3 in WEIGHT: 236 lb 1.6 oz DATE OF STUDY: 09/20/[address]: Malik Longo MD 2-DIMENSIONAL: YES M.MODE: YES DOPPLER: YES COLOR FLOW: YES TDS: NO PORTABLE: NO DEFINITY: NO BUBBLE STUDY: NO DIAGNOSIS: CHEST PAIN CARDIAC HISTORY: CATHERIZATION: NO SURGERY: NO PROSTHETIC VALVE: NO PACEMAKER: NO MEASUREMENTS (cm) DIASTOLIC (NORMALS) SYSTOLIC (NORMALS) IVSd 1.1 (0.6-1.2) LA Diam 3.5 (1.9-4.0) LVEF 59% LVIDd 4.2 (3.5-5.7) LVIDs 2.9 (2.0-3.5) %FS 31% LVPWd 1.2 (0.6-1.2) Ao Diam 2.4 (2.0-3.7) 2 DIMENSIONAL ASSESSMENT: RIGHT ATRIUM: NORMAL LEFT ATRIUM: NORMAL RIGHT VENTRICLE: NORMAL LEFT VENTRICLE: NORMAL TRICUSPID VALVE: NORMAL MITRAL VALVE: NORMAL PULMONIC VALVE: NORMAL AORTIC VALVE: NORMAL PERICARDIAL EFFUSION: NONE AORTIC ROOT: NORMAL LEFT VENTRICULAR WALL MOTION: NORMAL. DOPPLER/COLOR FLOW: MILD MITRAL AND TRICUSPID REGURGITATION. NORMAL RIGHT VENTRICULAR SYSTOLIC PRESSURE. COMMENTS: NORMAL 2D ECHO. MILD MITRAL AND TRICUSPID REGURGITATION. TECHNOLOGIST: GONZALO CHACKO
[2017-09-20 16:38] VITALS: O2SAT 94
== END 2017-09-20 16:00 | disposition home or self-care (01) ==
LOC: ER 15:40 → ERHOLD 21:26 → 4TH 23:27
PROVIDERS: ADMIT Internal Medicine; ATTEND Internal Medicine
DX: J18.9 Pneumonia, unspecified organism (principal); I11.0 Hypertensive heart disease with heart failure; I50.9 Heart failure, unspecified; K21.9 Gastro-esophageal reflux disease without esophagitis; F17.210 Nicotine dependence, cigarettes, uncomplicated
CPT/HCPCS: 36415; 71045; 71275; 78452; 80048; 80076; 81003; 81025; 82550; 82553; 83735; 83880; 84132; 84484; 85025; 85379; 85610; 85730; 87040; 87070; 87184; 87205; 93005; 93017; 93306; 93970; 94640; 94760; 96374; 96375; 99285; A9500; G0378; J0456; J0696; J1940; J2785; J3010; J7030; Q9967

== ENCOUNTER 2019-11-21 10:56 | Day surgery (SDC) | payer BC, OTHER ==
--- NOTE | 2019-11-17 11:23 | EKG ---
Test Date: 2019-11-16 Test Time: 13:12:53 [employer] Sales Representative: TERESA MEASUREMENT RESULTS: Intervals: Rate: 53 MS: 154 QRSD: 90 QT: 438 QTc: 410 [place]: P: 57 MS: 154 QRS: 57 T: 33 INTERPRETIVE STATEMENTS: Sinus bradycardia Otherwise normal ECG Compared to ECG 09/18/2017 22:02:19 Sinus rhythm no longer present Sinus arrhythmia no longer present Electronically Signed On 11-17-19 11:20:30 CDT by Nick Holland
--- OUTSIDE RECORDS SUMMARY | 2019-11-21 10:59 | XMS REPORT | Clinical Summary ---
:1965 Author Organization [facility] Address [address] [place] [address] Care Team Providers Name Role Phone Asked, No Pcp Primary Care Provider Unavailable Allergies Active Allergy Reactions Severity Noted Date Comments Hydrocodone 11/12/2016 Morphine 11/12/2016 Out of body exp erience Medications Medication Sig Dispensed Refills Start Date End Date Status metoprolol succinate Take 50 mg by 0 Active XL (TOPROL-XL) 50 mg mouth 2 (two) 24 hr tablet times a day. losartan-hydrochloroth Take 1 tablet by 0 Active iazide (HYZAAR) 100-25 mouth daily. mg per tablet IRON FUM,PS/FOLIC Take by mouth. 0 Active ACID/VITC/B3 (FOLIVANE-F ORAL) apixaban (ELIQUIS) 5 Take 5 mg by mouth 0 Active mg tablet 2 (two) times a day. Active Problems Not on file Family History Medical History Relation Name Comments Diabetes Father Tarun Crohn's disease Sister Janet Colon cancer Sister Juvenal Relation Name Status Comments Father Tarun Sister Janet Sister Juvenal Social History Tobacco Use Types Packs/Day Years Used Date Current Every Day Smoker Cigarettes 0.25 5 Sta rted: 07/08/2004 Tobacco Cessation: Counseling Given: Yes Alcohol Use Drinks/Week oz/Week Comments Yes 3 Cans of beer Sex Assigned at Date Recorded Not on file Job Start Date Occupation Industry Not on file Not on file Not on file Travel History Travel Start Travel End No recent travel history available. Last Filed Vital Signs Not on file Plan of Treatment Health Maintenance Due Date Last Done Comments CERVICAL CANCER SCREENING 1988 BREAST CANCER SCREENING 2017 COLONOSCOPY SCREENING 2017 SHINGLES VACCINES (#1) 2017 INFLUENZA VACCINE 12/07/2019 Results Not on fileafter 11/20/2018 Advance Directives For more information, please contact: [phone] Type Date Recorded Patient Remote Coders Explanati on Advance Directives, Living Will and Medical Power of Vocational Placement Specialist
[2019-11-21] MEDS ORDERED: Ringers Lactate 1,000 ML IV ONE (11:28)
[2019-11-21] MEDS ORDERED: LIDOCAINE 2% MPF 5 ML VIAL ONE (15:55)
[2019-11-21] MEDS ORDERED: propofoL 200 MG/20 ML VIAL IV ONE ×2 (15:55→17:29)
[2019-11-21] MEDS ORDERED: FENTANYL CITR 100 MCG/2 ML ONE (16:55)
[2019-11-21] MEDS ORDERED: LIDOCAINE 1% W/EPI 1:100,000 MDV 20 ML VIAL ONE (17:09)
[2019-11-21] MEDS ORDERED: SILVER NITRATE 1 APPL TOP ONE (17:09)
[2019-11-21] MEDS ORDERED: MIDAZOLAM HCL 2 MG/2 ML INJ ONE (17:15)
[2019-11-21] MEDS ORDERED: ONDANSETRON 4 MG/2 ML VIAL ONE (17:23)
[2019-11-21] MEDS ORDERED: dexAMETHasone 10 MG/ML VIAL ONE (17:23)
[2019-11-21] MEDS ORDERED: KETOROLAC 30 MG/ML INJ ONE (17:23)
[2019-11-21 17:50] VITALS: O2SAT 100
[2019-11-21] MEDS ORDERED: TRAMADOL HCL 50 MG TAB ONE (18:54)
[2019-11-21 19:08] VITALS: BP 129/84; TEMP 97.6
--- NOTE | 2019-11-21 22:06 | OP ---
Date of Procedure: 11/21/2019 Surgeon: Garima Londono MD Economics Analyst: None. Preoperative Diagnosis: Abnormal uterine bleeding, leiomyomata. Postoperative Diagnosis: Abnormal uterine bleeding, leiomyomata. Procedure Performed: Hysteroscopy, dilation and curettage. Anesthesia: MAC plus paracervical block. Complications: None. Drains: None. Specimens: Endometrial curettings. Findings: No intracavitary mass. However, the cavity is distorted from the impression of the left l ateral wall leiomyoma, which had no intracavitary extension per se. It just had distorted the cavity by pushing the endometrium into the canal. Description Of Procedure: After informed consent was verified, the patient was taken back to OR, ava gloria in a supine fashion on the operating table. MAC was given, placed in a dorsal lithotomy position . The vulva, vagina, and perineum prepped and draped in a sterile fashion. Anterior lip grasped wit h an Allis clamp and diagnostic SlimLine hysteroscope used to enter the cervical canal. The canal garzon d to be dilated before the scope could be entered and there was a strong degree of anteflexion. Once the cervix was dilated to 14-Lithuanian, the scope was passed without any problems and the cavity was em pty. The impression of the subendometrial leiomyoma from the left lateral wall was seen. Both tubal ostia were seen above it. Cavity was distorted, but no lesions. The endometrium appeared to be unr emarkable. Scope was removed. Endometrial curettings were performed with a 0 endometrial curette. Sample was handed out for permanent pathology. All instruments were removed. Instrument, needle, an d sponge counts were correct at the end of the case. The patient tolerated the procedure well. She was recovered from anesthesia in the OR and taken to PACU in stable condition, and her daughter was n otified of the findings. The patient has a 1 week followup appointment in the office. She will be d ischarged home today. No pain medications. Just ibuprofen as needed. DAVIN/OTILIAL Voice ID: [id number] Report ID: [id number]
== END 2019-11-21 19:07 | disposition home or self-care (01) ==
LOC: OR 10:56
PROVIDERS: ATTEND Obstetrics & Gynecology
PROC: 0UJD8ZZ Inspection of Uterus and Cervix, Via Natural or Artificial Opening Endoscopic (ICD-10-PCS; 2019-11-21)
PROC: 0UDB7ZX Extraction of Endometrium, Via Natural or Artificial Opening, Diagnostic (ICD-10-PCS; principal; 2019-11-21 14:30)
DX: N92.1 Excessive and frequent menstruation with irregular cycle (principal); N94.6 Dysmenorrhea, unspecified; D25.9 Leiomyoma of uterus, unspecified; I10 Essential (primary) hypertension; D64.9 Anemia, unspecified; F17.210 Nicotine dependence, cigarettes, uncomplicated; Z79.1 Long term (current) use of non-steroidal anti-inflammatories (NSAID); Z79.899 Other long term (current) drug therapy; Z86.711 Personal history of pulmonary embolism
CPT/HCPCS: 93005; 81025; 88305; 58558; J2704 ×2; J2250; J3010; J1100; J7120; J2405

== ENCOUNTER 2019-12-14 06:44 | Day surgery (SDC) | payer BC, OTHER ==
[2019-12-14] MEDS ORDERED: dexAMETHasone 4 MG/ML VIAL ONE (07:09)
[2019-12-14] MEDS ORDERED: FENTANYL CITR 100 MCG/2 ML ONE (07:09)
[2019-12-14] MEDS ORDERED: propofoL 200 MG/20 ML VIAL IV ONE (07:09)
[2019-12-14] MEDS ORDERED: LIDOCAINE 2% MPF 5 ML VIAL ONE (07:09)
[2019-12-14] MEDS ORDERED: MIDAZOLAM HCL 2 MG/2 ML INJ ONE (07:09)
[2019-12-14] MEDS ORDERED: CEFAZOLIN/SWI 1gm 1 GM/10 ML SYR ONE (07:13)
[2019-12-14] MEDS ORDERED: CEFAZOLIN/SWI 2gm 2 GM/20 ML SYR ONE (07:13)
[2019-12-14] MEDS ORDERED: Ringers Lactate 1,000 ML IV ONE (07:13)
[2019-12-14] MEDS ORDERED: LIDOCAINE 1% W/EPI 1:100,000 MDV 20 ML VIAL ONE (07:14)
[2019-12-14] MEDS ORDERED: NA CHLORIDE 0.9% 1,000 ML ONE (07:14)
[2019-12-14] MEDS ORDERED: HEPARIN 5000 UNIT/ML 1 ML VIAL ONE (08:16)
[2019-12-14] MEDS ORDERED: KETOROLAC 30 MG/ML INJ ONE (08:53)
[2019-12-14] MEDS ORDERED: ONDANSETRON 4 MG/2 ML VIAL ONE (09:17)
[2019-12-14] MEDS ORDERED: MEPERIDINE HCL 25 MG/ML SYR ONE ×2 (09:21→09:28)
[2019-12-14 09:48] VITALS: TEMP 97.1
[2019-12-14 10:04] VITALS: BP 125/89; O2SAT 96
[2019-12-14] MEDS ORDERED: IBUPROFEN 200 MG TAB PO ONE (10:06)
--- NOTE | 2019-12-14 10:10 | OP ---
Date of Procedure: 12/14/2019 Surgeon: Garima Londono MD Front Clerk: No assistants. Preoperative Diagnosis: Abnormal uterine bleeding, leiomyomata, ovulatory dysfunction (AUB-L/O). Postoperative Diagnosis: Abnormal uterine bleeding, leiomyomata, ovulatory dysfunction (AUB-L/O). Procedures Performed: Diagnostic hysteroscopy, endometrial ablation with HTA, hydrothermal ablation. Anesthesia: General with LMA. Complications: None. Specimens: None. Drains: None. Condition: Stable. Findings: Uterus significantly enlarged in the cavity. There was distortion, cavity narrowing due t o the fibroid from the left lateral wall. However, the entire cavity was unremarkable without any po lyps. Endometrium with normal appearance. Both tubal ostia were well visualized. After the ablatio n was completed, there was an excellent ablation effect in the global endometrial cavity. Indication: The patient is a 54-year-old with heavy bleeding, anemia with fibroid endometrial, and h istory of pulmonary embolus in the past. Currently not on any anticoagulation. However, heavy perio ds have led her to have a transvaginal ultrasound, endometrial sampling. No atypia or malignancy was seen. We discussed about the different options including an ablation for treatment of her bleeding and anemia, which was the most significant problem and the presence of fibroids, need for a possible hysterectomy. Discussed about the benefits and risks of each procedure as there was no atypia or ris k of the leiomyosarcoma was extremely small and ablation would take care of her current problem. Aft er understanding the benefits and the risks of both procedures and efficacy, the patient was consente d for hysteroscopy, ablation. After reconsenting her in the preop, her son was in the room with her. Description Of Procedure: When the consent was done, she was taken back to the OR. She was placed. 3 g of Ancef were given by her weight calculation. Heparin subcu 5000 units were given. SCDs were placed. After general anesthesia was given and she was placed in dorsal lithotomy position, pelvic e xam was performed. Vulva, vagina and perineum were prepped and draped in a sterile fashion. After e xposing the cervix with the speculum, the anterior lip was grasped with 2 Allis clamps, dilated to 12 -Luxembourger. Diagnostic SlimLine hysteroscope was introduced into the uterine cavity without any problem s, and the cavity was narrow with the impression of the fibroid from the left lateral wall. Both tub al ostia were well visualized. I did not believe that the NovaSure fan would be feasible for deploym ent due to the distortion of the cavity, so decided to use an HTA. Scope was removed. Device was opened up, camera attached, primed. Then, after inserting the scope i nto the uterine cavity, cavity integrity test was done. Once this passed, finished the complete 10 m inutes ablation cycle at 80 degree Celsius for 10 minutes and then 1.5 minute cooling cycle. All thi s was uninterrupted. After the scope was removed, a SlimLine scope was introduced into the uterine c avity and there was an excellent global endometrial ablation effect. During the ablation, 2 Ray-Tecs were placed in the posterior fornix. These were removed. All the in struments, needles and sponges were counted and were correct. The HTA device, the tip of it was just inside the internal os. This could not be advanced to the center of the cavity as would be optimal. This was because of the enlarged size of the uterus and the long cervical canal. That is the only suboptimal procedural step. That was not done due to the feasibility given the size of the uterus. She is going to be discharged home today. She was given 30 mg of Toradol before she was waken up. S he has a 1-month followup appointment with me at the office. Regular diet. Activity back to work in 2 days. DAVIN/ELAINE Voice ID: [id number] Report ID: [id number]
--- OUTSIDE RECORDS SUMMARY | 2019-12-14 22:44 | XMS REPORT | Clinical Summary ---
:1965 Author Organization [facility] Address [address] [place] [address] Care Team Providers Name Role Phone Asked, [...] a day. Active Problems Not on file Surgical History Surgery Date Site/Laterality Comments TUBAL LIGATION Medical History Medical History Date Comments Anemia Anxiety History of transfusion CHF (congestive heart failure) (HCC) Hypertension Sleep apnea Family History Medical History Relation Name Comments [...] Not on file Last Filed Vital Signs Not on file Plan of Treatment Health Maintenance Due Date Last Done Comments CERVICAL CANCER SCREENING 1988 BREAST CANCER SCREENING 2017 COLONOSCOPY SCREENING 2017 SHINGLES VACCINES (#1) 2017 INFLUENZA VACCINE 10/07/2019 Results Not on fileafter 12/13/2018 Advance Directives For more information, please contact: [phone] Type Date Recorded Patient Manager Sap Explanati on Advance Directives, Living Will and Medical Power of Film Waxer
== END 2019-12-14 10:08 | disposition home health service (06) ==
LOC: OR 06:44
PROVIDERS: ATTEND Obstetrics & Gynecology
PROC: 0U5B8ZZ Destruction of Endometrium, Via Natural or Artificial Opening Endoscopic (ICD-10-PCS; principal; 2019-12-14 07:30)
DX: N92.1 Excessive and frequent menstruation with irregular cycle (principal); N94.6 Dysmenorrhea, unspecified; D64.9 Anemia, unspecified; I26.99 Other pulmonary embolism without acute cor pulmonale; I10 Essential (primary) hypertension; F41.9 Anxiety disorder, unspecified; Z88.6 Allergy status to analgesic agent
CPT/HCPCS: 81025; 58563; J2704; J1100; J1644; J2250; J3010; J2175 ×2; J0690 ×2; J7120; J7030; J2405

== ENCOUNTER 2020-10-29 09:03 | Day surgery (SDC) | payer OTHER ==
[2020-10-23 12:52] LABS: Urine Appearance CLEAR (Clear); Urine Bilirubin NEGATIVE (Negative); Urine Blood NEGATIVE (Negative); Urine Color YELLOW (Yellow); Urine Glucose NEGATIVE (Negative); Urine Protein NEGATIVE (Negative); Urine Specific Gravity 1.015 (1.005-1.030); Urine Urobilinogen 0.2 mg/dL (0.2-1.0); Urine pH 5.5 (5.0-7.0)
[2020-10-23 12:54] LABS: Absolute Lymphocytes (CBC) 2.1 K/uL (0.7-4.9); Basophils % 0.6 % (0-1.3); Hematocrit 39.8 % (36.0-45.0); Lymphocytes % 37.4 % (15.3-44.8); MPV 8.1 fL (7.6-11.3)
[2020-10-23 12:57] LABS: Urine Microscopic Reflex NO UMIC
[2020-10-29] MEDS ORDERED: Ringers Lactate 1,000 ML IV ONE ×4 (10:05→18:14)
[2020-10-29] MEDS ORDERED: CEFAZOLIN/SWI 1gm 1 GM/10 ML SYR ONE (10:05)
[2020-10-29] MEDS ORDERED: propofoL 200 MG/20 ML VIAL IV ONE (10:06)
[2020-10-29] MEDS ORDERED: dexAMETHasone 10 MG/ML VIAL ONE (10:06)
[2020-10-29] MEDS ORDERED: KETAMINE HCL 500 MG/5 ML VIAL ONE (10:06)
[2020-10-29] MEDS ORDERED: MIDAZOLAM HCL 2 MG/2 ML INJ ONE (10:06)
[2020-10-29] MEDS ORDERED: LIDOCAINE 1% MPF 5 ML VIAL ONE (10:06)
[2020-10-29] MEDS ORDERED: SCOPOLAMINE HYDROBROMIDE PATCH TD ONE (10:06)
[2020-10-29] MEDS ORDERED: CEFAZOLIN/SWI 2gm 2 GM/20 ML SYR ONE (10:06)
[2020-10-29] MEDS ORDERED: ROCURONIUM 50 MG/5 ML VIAL IV ONE (10:07)
[2020-10-29] MEDS ORDERED: ONDANSETRON 4 MG/2 ML VIAL ONE ×2 (10:07→18:44)
[2020-10-29] MEDS ORDERED: FENTANYL CITR 250 MCG/5 ML ONE (10:07)
[2020-10-29] MEDS ORDERED: NS 0.9% VIAL 10 ML ONE (10:07)
[2020-10-29] MEDS ORDERED: NA CHLORIDE 0.9% 1,000 ML ONE ×2 (13:19→17:44)
[2020-10-29] MEDS ORDERED: BUPIVACAINE 0.25% PF 10 ML VIAL ONE ×3 (13:31→14:31)
[2020-10-29] MEDS ORDERED: VECURONIUM 10 MG/VIAL IV ONE (14:38)
[2020-10-29] MEDS ORDERED: GLYCOPYRROLATE 0.2 MG/ML SYR ONE ×2 (15:17→17:38)
[2020-10-29] MEDS ORDERED: NEOSTIGMINE 1 MG/ML -5 ML ONE (17:38)
[2020-10-29] MEDS ORDERED: Mastisol Adhesive Liq ONE (17:53)
[2020-10-29] MEDS: MORPHINE 4 MG/ML SYR ONE ×2 (18:20→18:50)
[2020-10-29] MEDS ORDERED: PROMETHAZINE INJ 25 MG/ML AMP IV PRN (18:32)
[2020-10-29] MEDS ORDERED: MEPERIDINE HCL 25 MG/ML SYR IM PRN ×2 (18:32→22:35)
[2020-10-29] MEDS ORDERED: IBUPROFEN 200 MG TAB PO PRN (18:32)
[2020-10-29] MEDS ORDERED: HYDROCODONE/APAP 5/325 MG TAB PO PRN (18:32)
--- NOTE | 2020-10-29 18:36 | P.BOP ---
Preoperative diagnosis: AUB-L/dysmenorrhea, pelvic pain Postoperative diagnosis: same and hematosalpinges, sigmoid adhesions Primary procedure: TLH BSO, Vag morcellation, BLANQUITA sigmoid, cystoscopy Water Superintendent: Sal Edmondson Estimated blood loss: 150 Specimen: uterus bilateral tubes ovaries Findings: large uterus 400gm,sigmoid diverticuli,adhesions,hematosalpinges Anesthesia: General Complications: None Drain(s): Urinary catheter Condition: Good
[2020-10-29] MEDS ORDERED: HEPARIN 5000 UNIT/ML 1 ML VIAL ONE (19:06)
[2020-10-29] MEDS ORDERED: HYDROCODONE/APAP 5/325 MG TAB ONE ×2 (19:46→20:48)
[2020-10-29 20:05] LABS: Absolute Lymphocytes (CBC) 0.7 K/uL (0.7-4.9); Basophils % 0.1 % (0-1.3); Hematocrit 35.9 % (36.0-45.0); Lymphocytes % 6.8 % (15.3-44.8); MPV 8.6 fL (7.6-11.3); RBC Red Blood Cell Count 3.88 M/uL (3.86-4.86)
[2020-10-29 20:33] LABS: Blood Morphology Comment NOT SEEN (NOT SEEN); Platelet Estimate ADEQ; White Blood Cell Scan OK (OK)
[2020-10-29] MEDS ORDERED: ATORVASTATIN 10 MG TAB PO SCH (21:00)
--- OUTSIDE RECORDS SUMMARY | 2020-10-29 21:06 | XMS REPORT | Continuity of Care Document ---
:1965 Author Organization [facility] t Address [address] [place] [address] Care Team Providers Name Role Phone Olimpia TRIPLETT Primary Care Physician Yissel Jauregui MD Attending Clinician Olimpia TRIPLETT Attending Clinician Bry TRIPLETT Attending Clinician Rosalina Powell MD Attending Clinician Radha TRIPLETT, L Attending Clinician Payers Payer Name Policy Type Policy Effective Expiration Source Number Date Date [employer]IGROUPAMER[employer]RP STAR [id number] 2019 M ethodist [id number] 2019-Pre 00:00:00 [facility] [id number] 2020 Metho dist [place] 00:00:00 [facility] [id number] 2020-Pres entHMO Problems This patient has no known problems. Allergies, Adverse Reactions, Alerts Allergy Allergy Status Severity Reaction(s) Onset Inactive Treating Comm ents Source Name Type Date Date Clinician Hydrocod Propensi Active Method i one ty to 11-12 st adverse 00:00: Hospita reaction 00 l s to drug Morphine Propensi Active Out of Method i ty to 11-[address] adverse 00:00: experienc Hospit a reaction 00 e l s to drug Family History Family Member Diagnosis Comments Start Date Stop Date Source Natural father Diabetes [facility] Natural [facility]hn's disease [facility] Natural sister Colon cancer [facility] Social History Social Habit Start Date Stop Date Quantity Comments Source History of tobacco 2004-07-08 Current every Met hodist use 00:00:00 day smoker Hospital Exposure to Not sure [facility] SARS-CoV-2 (event) Hospit al Cigarettes smoked 2020-10-03 2020-10-[address] current (pack per 00:00:00 00:00:00 Hospita l day) - Reported Cigarette 2020-10-03 2020-10-03 [facility] pack-years 00:00:00 00:00:00 Hospital Tobacco use and 2020-10-03 2020-10-03 Never used [facility] exposure 00:00:00 00:00:00 Hospital Alcohol intake 2020-10-03 2020-10-03 [facility] 00[facility]:00 of alcohol Hospital (finding) Sex Ass[birth year] At [birth year] [facility] 00:00:00 00:00:00 Hospital Smoking Status Start Date Stop Date Source Current every day smoker 2020-10-03 00:00:00 Met [facility] Medications Ordered Filled Start Stop Current Ordering Indication Dosage Frequency Signature Comments Components Source Medication Medication Date Date Medication? Clinician (SIG) Name Name IRON Yes Take by Methodmaurice FUMPS/FOLI 10-[address] C 19:23: Hospita ACID/VITC/B 09 l 3 (FOLIVANE-F ORAL) metoprolol 2020- No 50mg Q.5D Take 50 mg Methodi succinate 09-[address] XL 18:34: 00:00 (two) Hospita (TOPROL-XL) 07 :00 times a l 50 mg 24 hr day. tablet losartan-hy 2020- No 1{tbl} QD Take 1 M ethodi drochloroth 09-[address] iazide 18:34: 00:00 mouth Hospita (HYZAAR) 07 :00 daily. l 100-25 mg per tablet losartan-hy Yes 1{tbl} QD Take 1 Me thodi drochloroth - tablet by st iazide 00:00: mouth Hospita (Hyzaar) 00 daily. l 100-25 mg per tablet metoprolol 2020- Yes 50mg QD Take 1 Meth kervin succinate 09-27 tablet (50 st XL 00:00: 04:59 mg total) Hospita (TOPROL-XL) 00 :00 by mouth l 50 mg 24 hr daily for tablet 90 days. atorvastati 2020- Yes 40mg QD Take 1 Met hodi n (LIPITOR) 09-27 tablet (40 s t 40 mg 00:00: 04:59 mg total) Hospit a tablet 00 :00 by mouth l daily for 90 days. amLODIPine 2020- Yes 10mg QD Take 1 Meth kervin (NORVASC) 09-27 tablet (10 st 10 mg 00:00: 04:59 mg total) Hospit a tablet 00 :00 by mouth l daily for 60 days. amLODIPine 2020- No 10mg QD Take 1 Meth kervin (NORVASC) 09-27 tablet (10 st 10 mg 00:00: 00:00 mg total) Hospit a tablet 00 :00 by mouth l daily for 60 days. atorvastati 2020- No 40mg QD Take 1 Met hodi n (LIPITOR) 09-27 tablet (40 s t 40 mg 00:00: 00:00 mg total) Hospit a tablet 00 :00 by mouth l daily for 90 days. traMADoL 2020- [place] [id number] 50mg Q6H Take 1 Metho di (ULTRAM) 50 6-20 07- tablet (50 s t mg tablet 00:00: 04:59 mg total) Ho spita 00 :00 by mouth l every 6 (six) hours as needed for moderate pain or severe pain for up to 10 days .acute pain. traMADoL 2020- [place] [id number] 50mg Q6H Take 1 Metho di (ULTRAM) 50 6-19 06-20 tablet (50 s t mg tablet 00:00: 00:00 mg total) Ho spita 00 :00 by mouth l every 6 (six) hours as needed for moderate pain or severe pain for up to 10 days .acute pain. apixaban 2020- No 5mg Q.5D Take 5 mg Met hodi (ELIQUIS) 5 08-10 by mouth 2 s t mg tablet 16:51: 00:00 (two) Hospit a 14 :00 times a l day. aspirin No 81mg QD Take 1 Methodi (ECOTRIN) 08-10 tablet (81 st 81 MG 00:00: 04:59 mg total) Hospit a enteric 00 :00 by mouth l coated daily for tablet 60 days. clopidogreL No 75mg QD Take 1 Met hodi (PLAVIX) 75 08-10 tablet (75 s t mg tablet 00:00: 00:00 mg total) Ho spita 00 :00 by mouth l daily for 60 days. atorvastati 40mg QD Take 4 Met hodi n (LIPITOR) 08-[address] 10 mg 00:00: 00:00 (40 mg Hospita tablet 00 :00 total) by l mouth daily for 60 days. amLODIPine No 10mg QD Take 1 Meth kervin (NORVASC) 08-10 tablet (10 st 10 mg 00:00: 00:00 mg total) Hospit a tablet 00 :00 by mouth l daily for 60 days. Vital Signs Vital Name Observation Time Observation Value Comments Source Systolic blood 2020-10-03 19:27:00 115 mm[Hg] Method ist Hospital pressure Diastolic blood 2020-10-03 19:27:00 80 mm[Hg] [facility] pressure Heart rate 2020-10-03 19:27:00 88 /min [facility] Body height 2020-10-03 19:27:00 158.8 cm [facility] Body weight 2020-10-03 19:27:00 96.616 kg [facility] BMI 2020-10-03 19:27:00 38.34 kg/m2 [facility] Oxygen saturation in 2020-10-03 19:27:00 100 /min [facility] Arterial blood by Pulse oximetry Body temperature 2020-09-27 18:13:[address] [facility] Respiratory rate 2020-08-25 02:22:00 17 /min [facility] Hospital Procedures Procedure Date / Time Performing Clinician Source Performed ECG 12-LEAD 2020-10-03 19:31:26 [facility] HC COMPLETE BLD COUNT 2020-10-01 15:58:00 [facility]AUT[facility] DIFF [place] COMPREHENSIVE METABOLIC 2020-10-01 15:58:00 [facility] PANEL [facility] MICROALBUMIN, URINE, 2020-10-01 15:58:00 [facility] RANDOM [facility] HEMOGLOBIN A1C 2020-10-01 15:58:00 [facility] LIPID PANEL 2020-10-01 15:58:00 [facility]IMUL[facility] 2020-10-01 15:58:00 [facility] HORMONE [facility] T4 2020-10-01 15:58:00 [facility] D 25 HYDROXY 2020-10-01 15:58:00 [facility] LEVEL [facility] VITAMIN B12 LEVEL 2020-10-01 15:58[facility]00 [facility] 2020-10-01 15:58:00 [facility] HEPATITIS C ANTIBODY 2020-10-01 15:58:00 [facility] [place] ESTIMATED GFR 2020-10-01 15:58:00 [facility] FOLLICLE STIMULATING 2020-10-01 15:58:00 Letty Londono [facility] HORMONE TTE COMPLETE, WO 2020-10-01 15:23:21 Eros Doan ospital CONTRAST, W DOPPLER Jb ([id number]) US PELVIC TRANSVAGINAL 2020-09-17 19:45:04 Letty Londono [facility] US PELVIC TRANSABDOMINAL 2020-09-17 19:44:52 Letty Londono [facility] CT ANGIOGRAM PE CHEST 2020-08-25 01:16:00 Anastasia Jenkins [facility] CT ABDOMEN PELVIS W 2020-08-25 01:16:00 Anastasia Jenkins [facility] CONTRAST PROTHROMBIN TIME WITH INR 2020-08-25 00:28:00 [facility] PART[facility] THROMBOPLASTIN 2020-08-25 00:28:00 Gregory [facility] TIME (PTT) CREATINE KINASE, TOTAL 2020-08-25 00:28[facility] 2020-08-25 00:28:00 Anastasia Jenkins spital URINE CULTURE 2020-08-24 23:56:00 Anastasia Jenkins spital HC COMPLETE BLD COUNT 2020-08-24 23:56:00 Gregory [facility] W/AUTO DIFF COMPREHENSIVE METABOLIC 2020-08-24 23:56:00 Gregory [facility] PANEL LIPASE LEVEL 2020-08-24 23:56:00 Anastasia Jenkins spital URINALYSIS SCREEN AND 2020-08-24 23:56:00 Gregory [facility] MICROSCOPY, WITH REFLEX TO CULTURE ESTIMATED GFR 2020-08-24 23:56:[address] HEAD WO CONTRAST 2020-08-10 16:02:36 Brad Garcia [facility] XR CHEST 1 VW PORTABLE 2020-08-10 15:36:16 Brad Garcia [facility] TROPONIN 2020-08-10 15:34:00 Brad Garcia [facility] HC COMPLETE BLD COUNT 2020-08-10 15:32:00 Brad Garcia [facility] W/AUTO DIFF PROTHROMBIN TIME WITH INR 2020-08-10 15:32:00 Brad Garcia [facility] PARTIAL THROMBOPLASTIN 2020-08-10 15:32:00 Brad Garcia [facility] TIME (PTT) COMPREHENSIVE METABOLIC 2020-08-10 15:32:00 Brad Garcia [facility] PANEL CREATINE KINASE, TOTAL 2020-08-10 15:32:00 Brad Garcia [facility] ([facility] B NATRIURETIC PEPTIDE 2020-08-10 15:32:00 RadhaBrad Met [facility] URINALYSIS SCREEN AND 2020-08-10 15:32:00 [facility] Met [facility] MICROSCOPY, WITH REFLEX TO CULTURE ESTIMATED GFR 2020-08-10 15:32:00 [facility] ECG ED PRELIMINARY 2020-08-10 15:20:08 [facility] INTERPRETATION URINE CULTURE 2020-08-10 15:10:00 [facility] ECG 12-LEAD 2020-08-10 14:52:20 [facility] Plan of Care Planned Activity Planned Date Details Comments Source Future Scheduled Test BREAST CANCER SCREENING [facility] [code = BREAST CANCER SCREENING] Future Scheduled Test COLONOSCOPY SCREENING [facility] [code = COLONOSCOPY SCREENING] Future Scheduled Test SHINGLES VACCINES (#1) [facility] [code = SHINGLES VACCINES (#1)] Future Scheduled Test INFLUENZA VACCINE [code [facility] = INFLUENZA VACCINE] Future Scheduled Test COVID-19 VACCINE (1) [facility] [code = COVID-19 VACCINE (1)] Future Scheduled Test Screening for malignant [facility] neoplasm of cervix (procedure) [code = 084633163] Encounters Start End Encounter Admission Attending Care Care Encounter Source Date/Time Date/Time Type Type Clinicians Facility Department ID 2020-10-03 2020-10-03 Office Keegan Jauregui 1.2.840.1 [id number] Methodi 14:20:38 14:53:52 Visit Yissel 04331.1.[address] 3.430.2.7 Hospit a .3.986500 l .8 2020-10-03 2020-10-03 Travel 1.2.840.1 1.2.768.929 [id number] Methodi 00:00:00 00:00:[address] 3.430.2.7 0.2.7.3.698 Ho spita .3.591857 084.8 l .8 2020-10-03 2020-10-03 Outpatient KEEGAN JAUREGUI [facility] [id number] [place] 00:00:00 00:00:[address] 2020-10-01 2020-10-01 Hospital Chittimired 1.2.840.1 [id number] Methodi 09:53:24 23:59:00 Encounter dy, [address].1.[address] [facility] [place] 3.430.2.7 Hospi ta .3.423075 l .8 2020-10-01 2020-10-01 Transcribe Kadiyala, 1.2.840.1 [id number] Methodi 00:00:00 00:00:00 Orders Letty [address]3695.1.[address] 3.430.2.7 Hospit a .3.121395 l .8 2020-10-01 2020-10-01 Transcribe Ch[place] 1.2.840.1 [id number] Methodi 00:00:00 00:00:00 Orders dy, [address]69.1.[address] [facility] 3.430.2.7 Hospi ta .3.581554 l .8 2020-10-01 2020-10-01 Travel 1.2.840.1 1.2.679.682 [id number] Methodi 00:00:00 00:00:[address] 3.430.2.7 0.2.7.3.698 Ho spita .3.929787 084.8 l .8 2020-10-01 2020-10-01 Outpatient CHITTIMIRED [facility] [id number] [place] 00:00:00 00:00:00 DY, 128 Method i [facility] 2020-10-01 2020-10-01 Outpatient CHITTIMIRED [facility] [id number] [place] 00:00:00 00:00:00 DY, 200 Method i [facility] 2020-10-01 2020-10-01 Outpatient KADIYALA, [facility] [id number] [place] 00:00:00 00:00:00 LETTY 611 Method i 2020-09-27 2020-09-27 Office Chittimired 1.2.840.1 [id number] Methodi 13:09:39 13:48:54 Visit dy, [address].1.[address] [facility] 3.430.2.7 Hospi ta .3.898903 l .8 2020-09-27 2020-09-27 Travel 1.2.840.1 1.2.069.046 [id number] Methodi 00:00:00 00:00:[address] 3.430.2.7 0.2.7.3.698 Ho spita .3.266542 084.8 l .8 2020-09-27 2020-09-27 Outpatient CHITTIMIRED [facility] [id number] [place] 00:00:00 00:00:00 DY, 657 Method i [facility] 2020-09-17 2020-09-17 [facility], 1.2.840.1 [id number] Methodi 13:56:56 23:59:00 Encounter Letty 77044.1.[address] 3.430.2.7 Hospit a .3.157307 l .8 2020-09-17 2020-09-17 [facility], 1.2.840.1 [id number] Methodi 13:40:07 13:55:00 Encounter Letty 47653.1.[address] 3.430.2.7 Hospit a .3.299206 l .8 2020-09-17 2020-09-17 Travel 1.2.840.1 1.2.332.757 [id number] Methodi 00:00:00 00:00:[address] 3.430.2.7 0.2.7.3.698 Ho spita .3.760669 084.8 l .8 2020-09-17 2020-09-17 Outpatient [facility] [id number] [place] 00:00:00 00:00:00 LETTY 714 Method i 2020-09-17 2020-09-17 Outpatient [facility] [id number] [place] 00:00:00 00:00:[address] LETTY [address] 2020-09-16 2020-09-16 Transcribe Bry, 1.2.840.1 [id number] Methodi 00:00:00 00:00:00 Orders Letty 10411.1.[address] 3.430.2.7 Hospit a .3.252265 l .8 2020-09-11 2020-09-11 Travel 1.2.840.1 1.2.082.296 [id number] Methodi 00:00:00 00:00:[address] 3.430.2.7 0.2.7.3.698 Ho spita .3.564791 084.8 l .8 2020-08-24 2020-08-24 Emergency Andre Tamra 1.2.840.1 [id number] Methodi 18:08:00 21:24:[address] 3.430.2.7 Hospit a .3.901671 l .8 2020-08-24 2020-08-24 Travel 1.2.840.1 1.2.847.124 [id number] Methodi 00:00:00 00:00:[address] 3.430.2.7 0.2.7.3.698 Ho spita .3.038729 084.8 l .8 2020-08-24 2020-08-24 [facility] TAMRA POWELL [facility] [id number] [place] 00:00:00 00:00:[address] 2020-08-15 2020-08-15 Travel 1.2.840.1 1.2.657.949 [id number] Methodi 00:00:00 00:00:[address] 3.430.2.7 0.2.7.3.698 Ho spita .3.802461 084.8 l .8 2020-08-10 2020-08-10 Emergency Radha, 1.2.840.1 [id number] Methodi 09:47:00 11:51:00 Brad L [address]666.1.[address] 3.430.2.7 Hospit a .3.982880 l .8 2020-08-10 2020-08-10 Emergency RADHA, [facility] 064 [id number] [place] 00:00:00 00:00:[address] BRAD [address] 2020-08-10 2020-08-10 Travel 1.2.840.1 1.2.810.533 [id number] Methodi 00:00:00 00:00:[address] 3.430.2.7 0.2.7.3.698 Ho spita .3.361076 084.8 l .8 Results Test Description Test Time Test Comments Results Result Comments Source ECG 12 lead 2020-10-05 15:24:33 Test Item Value Reference Range Interpretation Comme nts Ventricular rate (test code = 253) Atrial rate (test code = 255) UT interval (test code = 266) QRSD interval (test code = 260) QT interval (test code = 264) QTC interval (test code = 265) P axis 1 (test code = 267) QRS axis 1 (test code = 268) T wave axis (test code = 270) EKG impression (test code = 273) Normal sinus rhythm-Normal ECG-In automated comparison with ECG of 10-AUG-2020 09:52,-No significant change was found- [facility], (w Contrast, Strain and 3D if needed)2020-10-03 13:52:47 Test Item Value Reference Range Interpretation Comments Velocity Ratio (V1/V2) (test code 0.88 m/s = 4689) IVS,d (test code = 1060318865) 1.26 cm EF (test code = 1113570193) 63.61 % LVPWD,d (test code = 3691864774) 1.52 cm AoV Mean PG (test code = mmHg 4270060383) AV LVOT peak gradient (test code mmHg = 5589252493) MV valve area p 1/2 method (test 3.50 cm2 code = 7852230152) E/A ratio (test code = 1457676430) E wave decelartion time (test msec code = 3804660784) LVOT Diam,S (test code = 2.19 cm 7057549884) LVOT area (test code = 3.76 cm2 9036361073) LVOT Vmax (test code = 1.32 m/s 3316702131) LVOT stroke volume (test code = 0.87 cm3 3408880060) AoV Peak PG (test code = mmHg 2400848489) MV Peak E Freedom (test code = 0.73 m/s 4759764143) MV stenosis pressure 1/2 time 62.91 ms (test code = 8615108352) MV Peak A Freedom (test code = 0.93 m/s 1630652634) LV Vol,s A2C (test code = 16.36 mL 4108245855) LV Vol,d A2C (test code = 49.48 mL 8367807087) AoV Area, Vmax (test code = 3.33 cm2 5114717830) AoV Area, VTI (test code = 3.10 cm2 6456277500) AoV Vmax (test code = 7308845301) 1.50 m/s LV,d (test code = 6758171907) 3.39 cm LV,s (test code = 7327726704) 2.25 cm LV Vol,d A4C (test code = 94.42 ml 0481400479) LV Vol,s A4C (test code = 24.77 ml 1761643667) TR Vpeak (test code = 0779295956) 2.82 mm/s MV E A ratio (test code = 1975033125) RA pressure (test code = mmHg 4522123821) TR pk grad (test code = mmHg 2541223113) MR peak grad (test code = mmHg 8540990359) LA Vol 4C (test code = 50.00 ml 7180578467) RVSP (test code = 4822720239) mmHg LV SYS VOL (test code = 17.15 ml 9408140333) LV REEVES VOL (test code = 47.13 ml 5955517218) LA diam s (test code = 3.60 cm 7356237429) LA Vol MOD A4C (test code = 50.22 ml 4339540490) LV SV Teich 2D (test code = 29.98 ml 9171446571) LVOT SI (test code = 0942348341) 43.71 ml/m2 AoV Cusp sep (test code = 3891721689) Aortic Root (test code = 2.74 cm 5965046964) AoV Vmn (test code = 4068503823) IVS s 2D (test code = 0745102643) LA Ao Ratio Mmode (test code = 4353049403) D E excurs (test code = 0566792402) E f slope (test code = 9847198527) E prime lat (test code = 3564482033) E dennis sept (test code = 2088117478) PV acc T slope (test code = 5606985275) PV AT (test code = 0395401256) msec JOINER BP EF (test code = 70.00 % 9667034296) LA VOL 2C (test code = 56.00 ml 5471267800) LVOT VTI (CM) (test code = 23.00 cm 2860747438) AoV VTI (test code = 8993236035) 0.28 m LV EF,A2C (test code = 66.93 % 5975812283) LV EF,A4C (test code = 73.76 % 2357795204) LV EF,BP (test code = 2850681504) 70.11 % Erik Potosi,d A2C (test code = 6.68 cm 0127532897) Erik Potosi,d A4C (test code = 7.02 cm 3791784790) Erik Potosi,s A2C (test code = 5.42 cm 1518715294) Erik Potosi,s A4C (test code = 5.03 cm 8855543932) LV SV,A2C (test code = 33.12 % 8753640003) LV SV,A4C (test code = 69.64 % 7232751682) LV Vol,d BP (test code = 69.79 ml 9194792456) LV Vol,s BP (test code = 20.86 nl 2676905986) LVOT VTI (test code = 2670552404) 0.23 m MR Vmax (test code = 0469191784) 3.74 m/s LVOT Vmn (test code = 9789535860) Pt Size (test code = 3812331193) Pt Wt (test code = 4278627734) LVOT mean grad (test code = mmHg 6322842974) LVPW s PLAX (test code = 1.85 cm 4751823288) MV Decel slope (test code = 3.00 m/s2 5488978736) EBEN (test code = EBEN) Yarsani [facility] Pelvic Atqhnbbcanzcez8134-28-54 21:16:32EXAMINATION: US PELVIC TRANSABDOMINAL, US PELVIC TRANSVAGINAL CLINICAL HISTORY: N92.1 Excessive and frequent menstruation with irregular cycle, frequent menstration irregular cycles COMPARISON: None. TECHNIQUE:Transabdominal and endovaginal sonographic images of the pelvis were obtained. Grayscale,color Doppler, and spectral waveform analysis of the ovarian vessels was performed. FINDINGS: The uterus measures 15.9 cm x 8.1 cm x 10.6 cm. 5.9 cm 6.0 cm x 4.9 cm submucosal fundal mass2.3 cm x 2.4 cm x 2.8 cm right-sided uterine fundal mass Masses correspond with findings seen on CT examination. The endometrial stripe measures 1.9 cm. Moderate endometrial fluid is present superior to the large uterine masses The right ovary measures 3.8 cm x 3.4 cm x 4.3 cm . Normal Doppler flow was present.3.6m cystThe left ovary measures 2.6 cm x 1.8 cm x 2.9 cm. Normal Doppler flow was present.2.1 cm cystThere is no fluid in the pelvic cul-de-sac. IMPRESSION: Enlarged uterus to 15.9 cm. 6.0 cm submucosal uterine fundal mass likely representing fibroid similar to 04/26/2020 CT Smaller 2.8 cm right-sided f undal fibroid Thickened endometrium to 1.9 cm with moderate endometrial fluid. The inferior aspect of the endometrium is obscured by the large submucosal fibroid [id number] Interface, Radiology Results 09/17/2020 4:19 PM CDT .EXAMINATION: US PELVIC TRANSABDOMINAL, US PELVIC TRANSVAGINALCLINICAL HISTORY: N92.1 Excessive and frequent menstruation with irregular cycle, frequent menstration irregular cyclesCOMPARISON: None.TECHNIQUE:Transabdominal and endovaginal sonographic images of the pelvis were obtained. Grayscale, color Doppler, and spectral waveform analysis of the ovarian vessels was performed.FINDINGS:The uterusmeasures 15.9 cm x 8.1 cm x 10.6 cm.5.9 cm 6.0 cm x 4.9 cm submucosal fundal mass2.3 cm x 2.4 cm x 2.8 cm right-sided uterine fundal massMasses correspond with findings seen on CT examination.The endometrial stripe measures 1.9 cm. Moderate endometrial fluid is present superior to the large uterine massesThe right ovary measures 3.8 cm x 3.4 cm x 4.3 cm . Normal Doppler flow was present.3.6 m cystTheleft ovary measures 2.6 cm x 1.8 cm x 2.9 cm. Normal Doppler flow was present.2.1 cm cystThere is nofluid in the pelvic cul-de-sac.IMPRESSION:Enlarged uterus to 15.9 cm.6.0 cm submucosal uterine fundal mass likely representing fibroid similar to 04/26/2020 CTSmaller 2.8 cm right-sided fundal fibroidThickened endometrium to 1.9 cm with moderate endometrial fluid. The inferior aspect of the endometriumis obscured by the large submucosal fibroid [id number] Pelvic Transvaginal 2020-09-17 21:16:32EXAMINATION: US PELVIC TRANSABDOMINAL, US PELVIC TRANSVAGINAL CLINICAL HISTORY: N92.1 Excessive and frequent menstruation with irregular cycle, frequent menstration irregular cycles COMPARISON: None. TECHNIQUE:Transabdominal and endovaginal sonographic images of the pelvis were obtained. Grayscale,color Doppler, and spectral waveform analysis of the ovarian vessels was performed. FINDINGS: The uterus measures 15.9 cm x 8.1 cm x 10.6 cm. 5.9 cm 6.0 cm x 4.9 cm submucosal fundal mass2.3 cm x 2.4 cm x 2.8 cm right- sided uterine fundal mass Masses correspond with findings seen on CT examination. The endometrial stripe measures 1.9 cm. Moderate endometrial fluid is present superior to the large uterine masses The right ovary measures 3.8 cm x 3.4 cm x 4.3 cm . Normal Doppler flow was present.3.6m cystThe left ovary measures 2.6 cm x 1.8 cm x 2.9 cm. Normal Doppler flow was present.2.1 cm cystTh ere is no fluid in the pelvic cul-de-sac. IMPRESSION: Enlarged uterus to 15.9 cm. 6.0 cm submucosal uterine fundal mass likely representing fibroid similar to 04/26/2020 CT Smaller 2.8 cm right-sided fundal fibroid Thickened endometrium to 1.9 cm with moderate endometrial fluid. The inferior aspect of the endometrium is obscured by the large submucosal fibroid [id number] Hm Interface, Radiology Results Incoming - 09/17/2020 4:19 PM CDT EXAMINATION: US PELVIC TRANSABDOMINAL, US PELVIC TRANSVAGINALCLINICAL HISTORY: N92.1 Excessive and frequent menstruation with irregular cycle, frequent menstration irregular cyclesCOMPARISON: None.T ECHNIQUE:Transabdominal and endovaginal sonographic images of the pelvis were obtained. Grayscale, color Doppler, and spectral waveform analysis of the ovarian vessels was performed.FINDINGS:The uterusmeasures 15.9 cm x 8.1 cm x 10.6 cm.5.9 cm 6.0 cm x 4.9 cm submucosal fundal mass2.3 cm x 2.4 cm x 2.8 cm right-sided uterine fundal massMasses correspond with findings seen on CT examination.The endometrial stripe measures 1.9 cm. Moderate endometrial fluid is present superior to the large uterine massesThe right ovary measures 3.8 cm x 3.4 cm x 4.3 cm . Normal Doppler flow was present.3.6 m cystTheleft ovary measures 2.6 cm x 1.8 cm x 2.9 cm. Normal Doppler flow was present.2.1 cm cystThere is nofluid in the pelvic cul-de-sac.IMPRESSION:Enlarged uterus to 15.9 cm.6.0 cm submucosal uterine fundal mass likely representing fibroid similar to 04/26/2020 CTSmaller 2.8 cm right-sided fundal fibroidThickened endometrium to 1.9 cm with moderate endometrial fluid. The inferior aspect of the endometriumis obscured by the large submucosal fibroid [id number] [id number] 01:27:21EXAMINATION: CT ABDOMEN PELVIS W CONTRAST CLINICAL HISTORY: abdominal pain TECHNIQUE: Multiple axial images of the abdomen and pelvis were obtained following intravenous administration of iodinated contrast. Sagittal and coronal computerized reformatted images were also obtained. Radiation dose reduction technique was utilized. COMPARISON: None. IMPRESSION: Abdomen: 1. Liver, spleen, pancreas, adrenals, and kidneys are normal.2.There is no retroperitoneal adenopathy or ascites.3.There is no intest inal obstruction or inflammation. Pelvis: 1. Uterus is enlarged and contains fibroids. Endometrium appears thickened at 2.1 cm. Clinical correlation recommended to rule endometrial neoplasm.2.There is a 3.5 cm right adnexal cyst and 1.9 cm left adnexal cyst.3.There is no pelvic adenopathy or free fluid .4.There is sigmoid diverticulosis without evidence of diverticulitis. [id number] Interface, Radiology Results 08/24/2020 8:30 PM CDTFormatting of this note might be different fromthe original.EXAMINATION: CT ABDOMEN PELVIS W CONTRASTCLINICAL HISTORY: abdominal painTECHNIQUE: Multiple axial images of the abdomen and pelvis were obtained following intravenous administration of iodinated contrast. Sagittal and coronal computerized reformatted images were also obtained. Radiation dose reduction technique was utilized.COMPARISON: None.IMPRESSION:Abdomen:1. Liver, spleen, pancreas, adrenals, and kidneys are normal.2.There is no retroperitoneal adenopathy or ascites.3.There is no intestinal obstruction or inflammation.Pelvis:1. Uterus is enlarged and contains fibroids. Endometrium appears thickened at 2.1 cm. Clinical correlation recommended to rule endometrial neoplasm.2.There is a 3.5 cm right adnexal cyst and 1.9 cm left adnexal cyst.3.There is no pelvic adenopathy or freefluid.4.There is sigmoid diverticulosis without evidence of diverticulitis.[id number]CT Ang[facility] Pe [id number] 01:23:50EXAMINATION:CT ANGIOGRAM PE CHEST CLINICAL HISTORY:sob cp hx of PE TECHNIQUE:CT angiographic images of the chest were obtained during intravenous administration of iodinated contrast. Computerized reformatted images and 3-D MIP images were also obtained and archived (CT pulmonary embolus protocol).CT imaging was performed with iterative reconstruction techniques and/or automated exposure control toreduce radiation dose. COMPARISON:August 24, 2020 CT scan FINDINGS:1.Pulmonary arteries are adequately opacified and there are no filling defects identified to suggest acute pulmonary embolus.2.The thoracic aorta is of normal caliber.3.No pleural or pericardial effusions.4.No pulmonary infiltrates or nodules. No areas of groundglass opacification.5.Limited scans through the upper abdomen do not demonstrate a focal abnormality. IMPRESSION:No evidence of acute pulmonary embolus or other acute finding.[facility]-[id number] Interface, Radiology Results 08/24/2020 8:27 PM CDT EXAMINATION:CT ANGIOGRAM PE CHESTCLINICAL HISTORY:sob cp hx of PETECHNIQUE:CT angiographic images of the chest were obtained during intravenous administrationof iodinated contrast. Computerized reformatted images and 3-D MIP images were also obtained and archived (CT pulmonary embolus protocol).CT imaging was performed with iterative reconstruction techniques and/or automated exposure control to reduce radiation dose.COMPARISON:August 24, 2020 CT scanFINDINGS:1.Pulmonary arteries are adequately opacified and there are no filling defects identified to suggest acute pulmonary embolus.2.The thoracic aorta is of normal caliber.3.No pleural or pericardial effusions.4.No pulmonary infiltrates or nodules. No areas of groundglass opacification.5.Limited scans through the upper abdomen do not demonstrate a focal abnormality.IMPRESSION:No evidence of acute pulmonary embolus or other acute finding.[id number] HospitalCT Head Wo [id number] 16:07:05EXAMINATION: CT HEAD WO CONTRAST CLINICAL HISTORY: Transient ischemic attack (TIA), Stroke followup, 3 days of facial numbness HTN greater than 180 systolic COMPARISON: None. TECHNIQUE: Axial CT images of the head obtained without intravenous contrast. Multiplanar reformatted images were also generated. FINDINGS: No evidence of acute intracranial hemorrhage, mass, mass effect, midline shift, oracute infarct. Ventricles and sulci are normal in appearance for age. Basal cisterns are clear. Calvarium is intact. Moderately expanded empty sella. Orbits are unremarkable. Mild to moderate sinus inflammatory changes most prominently involving the left maxillary sinus. Mastoid air cells are clear. IMPRESSION: 1. No CT evidence of acute intracranial abnormality. [facility]-[id number] Interface, Radiology Results Incoming - 08/10/2020 11:10 AM CDTFormatting of this note might be different from the calvin ginal.EXAMINATION: CT HEAD WO CONTRASTCLINICAL HISTORY: Transient ischemic attack (TIA), Stroke follow up, 3 days of facial numbness HTN greater than 180 systolicCOMPARISON: None.TECHNIQUE: Axial CT images of the head obtained without intravenous contrast. Multiplanar reformatted images were also generated.FINDINGS:No evidence of acute intracranial hemorrhage, mass, mass effect, midline shift, or acute infarct. Ventricles and sulci are normal in appearance for age. Basal cisterns are clear. Calvarium is intact. Moderately expanded empty sella.Orbits are unremarkable. Mild to moderate sinus inf lammatory changes most prominently involving the left maxillary sinus. Mastoid air cells are clear.IMPRESSION:1. No CT evidence of acute intracranial abnormality.[facility]-[id number] HospitalXR Chest 1 Vw [id number] 15:59:29EXAMINATION: XR CHEST 1 VW PORTABLE CLINICAL HISTORY: HTN emergency COMPARISON: 11/24/2012 IMPRESSION: Stable borderline enlargement of the cardiomediastinal silhouette. Pulmonary vasculature is normal. No focal infiltrate, effusion or pneumothorax seen. Visualized osseous structures are intact. [facility]-[id number] Interface, Radiology Results Incoming - 08/10/2020 11:02 AM CDT EXAMINATION: XR CHEST 1 PORTABLECLINICAL HISTORY: HTN em ergencyCOMPARISON: 11/24/2012IMPRESSION:Stable borderline enlargement of the cardiomediastinal silhouette. Pulmonary vasculature is normal. No focal infiltrate, effusion or pneumothorax seen. Visualized osseous structures are intact. [facility]-[id number] N. [facility] ED Preliminary Interpretation - Not an [id number] 15:20:08Brad Garcia MD 08/11/2020 7:09 [facility] ED Preliminary Interpretation - Not an OrderPerformed by: Brad Garcia MDAuthorized by: Brad Garcia MD ECG reviewed by ED Physician in the absence of a special education kindergarten teacher: yes Interpretation: Interpretation: normal Rate: ECG rate: 80 ECG rate assessment: normal Rhythm: Rhythm: sinus rhythm Ectopy: Ectopy: none QRS: QRS axis: Normal QRS intervals: NormalConduction: Conduction: normal ST segments: ST segments: NormalT w aves: T waves: normalQu[facility] Surgical [facility]
[2020-10-29] MEDS ORDERED: HYDROCODONE/APAP 5/325 MG TAB PO SCH (22:00)
[2020-10-29] MEDS ORDERED: IBUPROFEN 400 MG TAB PO SCH ×2 (22:00)
[2020-10-29] MEDS ORDERED: MEPERIDINE HCL 50 MG/ML ONE (23:02)
[2020-10-30 01:04] VITALS: BMI 37.1
[2020-10-30] MEDS ORDERED: Ringers Lactate 1,000 ML IV ONE (02:13)
--- NOTE | 2020-10-30 04:08 | OP ---
Date of Procedure: 10/29/2020 Surgeon: Garima Londono MD Exterminator Helper Termite: Sal Edmondson Preoperative Diagnosis: Abnormal uterine bleeding-L, the patient status post ablation, fibroid, dysm enorrhea, and pelvic pain. Postoperative Diagnoses: Abnormal uterine bleeding-L, the patient status post ablation, fibroid, dys menorrhea, pelvic pain, bilateral hematosalpinges, and sigmoid adhesions with sigmoid diverticulitis. Procedures Performed: 1.Total laparoscopic hysterectomy, bilateral salpingo-oophorectomy. 2.Vaginal morcellation. 3.Lysis of sigmoid adhesions from the lateral wall, at least 15 to 20 minutes of this case was spent on this. 4.Cystoscopy. It was a difficult procedure due to the largeness of the fibroids as well as scarring from possible d iverticular inflammation and also the hematosalpinges. Anesthesia: General endotracheal. Specimens: Uterus, bilateral tubes and ovaries. No complications or drains. The patient's condition is stable. Findings: Uterus was significantly enlarged; however, the apex was very high. There were multiple f ibroids that made very difficult for vaginal retrieval of the specimen and even during morcellation, it was a difficult procedure due to the obesity of the patient as was the size of her uterus. Then, sigmoid adhesions were present. Diverticula were seen. These had to be released from the left later al wall all the way from above the level of the pelvic brim to the level of the uterosacral ligament in the lower one-third. The adhesions were to the sidewall as well as the pedicle of the ovary. There appeared to be significant bladder flap inflammation as well, most likely due to increased vasc ularity of the fibroids. The colpotomy was closed with the help of 0 Vicryl sutures interrupted [id number] x3 and 2 angl e sutures. Then, the superficial bladder laceration from the procedure. This was over sutured with the help of 3-0 Monocryl in a continuous running fashion. On cystoscopy, the bladder was completely intact. There was just evidence of squamous metaplasia, but no trauma to the bladder, foreign body, or any puckering from even the suturing. Decision was made to send the patient home without a catheter due to this reason. The patient is a 55-year-old with significant history of hypertension, anxiety, PE in the past. She has been cleared and she has been off the Plavix per her physician. She has been taking aspirin for some pain. It was last taken on Wednesday. Endometrial/uterine evaluation with ultrasound was done. No change from the past fibroids. Endometr ial curettings were performed and there were small fragments of endometrium without any hyperplasia o r malignancy. Since the patient had significant pelvic pain, she was given Levaquin and metronidazol e in the past, suspicious for hematometra, endometritis, or salpingitis. This has since calmed down as she had initially presented in September in the ER. She was consented after discussing all the alterna tives of conservative management for a total laparoscopic hysterectomy, bilateral salpingo-oophorecto my, however did not anticipate vaginal morcellation due to the size of the uterus as she was 3, para 3 with 3 vaginal deliveries. She was taken back to the OR, placed in supine fashion on the operating table. SCDs were started. A paty were tucked by their side. The patient was placed in Salvatore stirrups after general anesthesia was given. Abdomen, vulva, vagina, and perineum were prepped and draped in a sterile fashion. Barfield wa s placed to drain the bladder and the uterine manipulator was introduced to 7 cm, could not be advanc ed any further, most likely due to ablation. The bladder was attached for retrograde filling and this was drained and left for drainage after kenneth cardoso started the case actually. 10 mm midline incision was made on the skin at the infraumbilical area after injecting local Marcaine. Then went ahead and dissected down to the fascia, incised with 15 b lade, and tagged with 0 Vicryl sutures on both sides. Peritoneum entered sharply. Yair introduced directly. After adequate insufflation, the patient was placed in Trendelenburg. Upper abdominal harley rface unremarkable. Lower abdominal surface was significant for adhesions of the sigmoid colon. A 5 left lower quadrant, 10 suprapubic, and 5 right lower quadrant ports were placed under direct vision . Then, under direct visualization, the dissection was performed with push spread technique, opening up the sidewall from the sigmoid with the help of sharp dissection and with LigaSure. Once all the adhesions were taken down from the lateral wall and the lateral wall was completely exposed, includin g the ovarian pedicle as well as the ureter, then procedure was started. Took down the mesosalpinx a nd tube of the left side, left it attached to the uterus. Then, utero-ovarian ligament and round lig ament were taken down. Anterior broad ligament was opened up to raise the bladder flap posteriorly. This was taken down to the uterosacral. Then vessels were skeletonized. While doing this, there wa s bleeding from the uterine vessel at the level of the internal os, so this was cauterized and eventu ally once the hemostasis was secured, then went ahead and dissected the bladder away. The bladder at this time seemed to be slightly distended. It was made sure that it drained on the floor and once t his was done, the bladder completely stayed retracted. Very superficial detrusor laceration was note d. The vesicovaginal space was identified and entered. The vaginal manipulator cup was very well vi sualized once the dissection was performed. Then went on the opposite side. Utero-ovarian ligament taken down. The mesosalpinx and round ligament were taken down. Posterior broad ligament taken down to the left uterosacral and the anterior broad ligament joined with the above on the contralateral s lazaro. Then, the broad ligament was dissected to expose the vessels. The vessels were taken down with the help of the LigaSure after cauterization with bipolar basket tip. Once the vessels were cauteri zed and cut, then took down the cardinal ligaments on this side. Then went on the opposite side and vessels were taken down after dissecting the bladder still further on the left side, exposing the cup much better in the entire circumference on the left side. Then, the vessels were cauterized with th e bipolar and then taken down with the help of the LigaSure. Went on to take down the cardinal ligam ents as well. Then circumferential colpotomy performed with a monopolar hook blade and the specimen detached and pulled out through the vagina. It was very difficult to the extract this without morcel lating. Two small Laney's and Cerrato speculum were taken for retraction and suction, and the Yankauer for main taining good visualization. Then 4 mass clamps and a 10 blade were used to perform morcellation. Gr adually was able to detach the cervix, then the fibroids. There were 2 fibroids that were degenerate d and the rest of the specimen was retrieved. This was one of the most difficult part of this proced ure as the patient's body habitus as well as the narrowness of the canal and the largeness of the carlo luis enrique and the orientation made it very difficult. Once the specimen was retrieved, sponge was placed i nside the vagina tucked inside a glove for pneumo-occlusion and exposure of the cuff for suturing. Thorough irrigation and suction were performed. The left lateral margin of the cuff just below the l evel of the uterine vessels was bleeding and was bleeding significantly with small "clots. This was cleared up, identified, cauterized with the help of the LigaSure making sure that rest of the areas w ere all visualized. No evidence of any bleeding. Then, vaginal cuff was closed with the help of 0 V icryl angle stitch on the left side. Then, the ovaries were removed along with the ovary and tube on the right side. Then, these were retrieved through the vagina. Then, simple 0 Vicryl angle suture on the right side and 3 [id number] in the center were placed. Once this was done, then thoroug h irrigation and suction were performed. The superficial lacerations were sutured in a continuous ru nning fashion with the help of 3-0 Monocryl. Once this was all done and tied down, good hemostasis w as secured in all places and thorough irrigation and suction were performed. Then, we made sure that all the trocars were removed under direct vision. No evidence of electrical, mechanical, or thermal injury to the ureters or the bowel. All the trocar sites were injected at the fascia and skin at th e entry and exit. The umbilical fascial port was closed with the help of 0 Vicryl tag sutures tied t o each other. In the suprapubic site, simple 0 Vicryl stitch was placed for apposition of the fascia . All the skin incisions were closed with the help of soila excepting the umbilical incision close d with continuous 4-0 Vicryl. After Barfield was removed and vaginal packing was removed, then cystoscopy was performed with 30-degree lens. There was squamous metaplasia in the trigone as well as in the transitional epithelium close to the medial aspect of the ureteric orifices. Once this was well visualized, both ureteric orifices were noted for strong jets of urine from them. Then, area above the trigone and lateral aviles were all carefully examined and there was no evidence of any trauma or foreign body. Even the sutures did not even make any popping or impression. The detrusor laceration was extremely superficial, probabl y did not need any suturing, but for safety, just did this. Did not deem a Barfield catheter drainage n ecessary, so this was removed. The bladder was drained and the Barfield was left out. The patient was recovered from anesthesia. Instrument, needle, and sponge counts x3 were correct at the end of the c ase. The patient did have some subcutaneous air (subcutaneous emphysema from the laparoscopic insuff lation). Nothing present on the chest or crepitus noted. I will keep a close eye and examine that. She will be discharged home after she has good pain control and is awake, with voiding instructions. If she is able to empty, then she will do that here. DAVIN/ELAINE Voice ID: [id number] Report ID: [id number]
[2020-10-30 06:00] LABS: Absolute Lymphocytes (CBC) 0.8 K/uL (0.7-4.9); Basophils % 0.2 % (0-1.3); Hematocrit 31.5 % (36.0-45.0); Lymphocytes % 9.3 % (15.3-44.8); MPV 8.1 fL (7.6-11.3); RBC Red Blood Cell Count 3.43 M/uL (3.86-4.86)
[2020-10-30 06:19] VITALS: TEMP 97.5
[2020-10-30 06:27] LABS: BUN Blood Urea Nitrogen 16 mg/dL (7-18); Bicarbonate 30 mmol/L (21-32); Glucose Level 125 mg/dL (74-106); Potassium 3.5 mmol/L (3.5-5.1); Sodium Level 140 mmol/L (136-145)
[2020-10-30 07:47] VITALS: BP 113/58; O2SAT 96
[2020-10-30 07:58] LABS: Platelet Estimate ADEQ
[2020-10-30 07:59] LABS: Blood Morphology Comment NOT SEEN (NOT SEEN)
[2020-10-30] MEDS ORDERED: METOPROLOL TAR 50 MG TAB PO SCH (09:00)
[2020-10-30] MEDS ORDERED: AMLODIPINE 10 MG TAB PO SCH (09:00)
[2020-10-30] MEDS ORDERED: LOSARTAN POTASSIUM 50 MG TABLET PO SCH (09:00)
[2020-10-30] MEDS ORDERED: ATORVASTATIN 10 MG TAB PO SCH (21:00)
== END 2020-10-30 11:35 | disposition home or self-care (01) ==
LOC: OR 09:03 → 2ND-WC 20:00 → UNDOADMOB 21:02 → 2ND-WC 21:02 → INTOOBSV 21:02 → UNDOADMIN 21:02 → UNDODISIN 21:20 → INTOOBSV 10-30 07:54 → OBSVTOIN 10-30 07:54 → OR 10-30 11:35 → UNDODISIN 10-30 11:35
PROVIDERS: ATTEND Obstetrics & Gynecology
PROC: 0UT24ZZ Resection of Bilateral Ovaries, Percutaneous Endoscopic Approach (ICD-10-PCS; 2020-10-29)
PROC: 0UT74ZZ Resection of Bilateral Fallopian Tubes, Percutaneous Endoscopic Approach (ICD-10-PCS; 2020-10-29)
PROC: 0DNW4ZZ Release Peritoneum, Percutaneous Endoscopic Approach (ICD-10-PCS; 2020-10-29)
PROC: 0UT94ZZ Resection of Uterus, Percutaneous Endoscopic Approach (ICD-10-PCS; principal; 2020-10-29 10:30)
DX: N93.9 Abnormal uterine and vaginal bleeding, unspecified (principal); D25.9 Leiomyoma of uterus, unspecified; R10.2 Pelvic and perineal pain; N94.6 Dysmenorrhea, unspecified; I26.99 Other pulmonary embolism without acute cor pulmonale; I10 Essential (primary) hypertension
CPT/HCPCS: 85025 ×3; 80048; 36415 ×2; 86900 ×2; 86850 ×2; 81025; 86901 ×2; 88307; 81003; 58573; 49329; G0379; J2704; J1644; J2250; J3010; J1100; J2175; J2710; J0690 ×2; G0378 ×3; J7120 ×5; J7030 ×2; J2405 ×2

== ENCOUNTER 2024-10-17 15:25 | Emergency (ER) | payer OTHER ==
[2024-10-17 16:45] LABS: Absolute Lymphocytes (CBC) 2.0 K/uL (0.7-4.9); Hematocrit 42.2 % (36.0-45.0); Hemoglobin 14.4 g/dL (12.0-15.0); MCH 31.5 pg (27.0-35.0); MCHC 34.2 g/dL (32.0-36.0); MCV 92.1 fL (80-100); MPV 8.3 fL (7.6-11.3); Nucleated RBC Absolute Count 0.0 (0-0); Nucleated Red Blood Cells % 0.1 % (0-0); RBC Red Blood Cell Count 4.58 M/uL (3.86-4.86); White Blood Count 6.50 thou/uL (4.3-10.9)
[2024-10-17 16:52] LABS: PT Prothrombin Time 11.3 SECONDS (10-13.0); Protime INR 1.0
[2024-10-17 17:05] LABS: ALT/SGPT 27.0 U/L (13-56); AST/SGOT 16.0 U/L (15-37); Albumin 3.8 g/dL (3.4-5.0); Albumin/Globulin Ratio 1.1 (1.1-1.8); Alkaline Phosphatase 116.0 U/L (45-117); Anion Gap 9.1 mEq/L (5.0-15.0); BUN Blood Urea Nitrogen 27.0 mg/dL (7-18); Bilirubin Indirect, Calculated 0.2 mg/dL (0.2-0.8); Globulin 3.5 g/dL (2.3-3.5); Glucose Level 100.0 mg/dL (74-106); Magnesium 2.0 mg/dL (1.6-2.4); NT PRO-BNP 121.0 pg/mL (<125); Potassium 3.1 mEq/L (3.5-5.1); Troponin High Sensitivity 3.7 pg/mL (<58.9)
[2024-10-17] MEDS ORDERED: POTASSIUM 25 MEQ EFFERV TAB ONE (17:38)
[2024-10-17] MEDS ORDERED: NA CHLORIDE 0.9% 1,000 ML ONE (17:38)
--- NOTE | 2024-10-17 17:40 | RAD REPORT ---
EXAMINATION: US Extrem Venous W Compress Nemesio CLINICAL INDICATION: [facility] h/o DVT / PE;Pain;Swelling Bed Name: 26 N TECHNIQUE: Complete bilateral duplex sonography of the BILATERAL lower extremity veins was performed. The examination included compression for vein patency, color Doppler imaging and flow augmentation in response to distal compression of the distal external iliac, common femoral, femoral, popliteal, t ibial, and great and small saphenous veins. COMPARISON: No prior exam. FINDINGS: Duplex sonography testing of the veins of the BILATERAL lower extremity was performed. Color flow иван ging shows all veins to be compressible with [id number] color filling. Pulsatile and phasic flow is present within all lower extremity deep and superficial veins examined. IMPRESSION: There is no deep vein or superficial vein thrombosis.
--- NOTE | 2024-10-17 17:41 | RAD REPORT ---
EXAMINATION: ONE VIEW CHEST XR CLINICAL INDICATION: Female, 59 years old.,CHEST PAIN TECHNIQUE: Frontal chest projection is submitted. Examination is limited by patient positioning and t echnique. COMPARISON: 09/18/2017 FINDINGS: The lungs are well inflated and clear. No pneumothorax or sizable effusion. The heart is normal in s ize. Mediastinal contours are unremarkable. IMPRESSION: No acute intrathoracic abnormalities.
--- NOTE | 2024-10-17 18:55 | ER ---
Nurse's Notes [facility] Name: Yesenia Lawton Age: 59 yrs Sex: Female : 1965 Arrival Date: 10/17/2024 Time: 15:25 Bed 26 Private MD: Diagnosis: Chest pain, unspecified Presentation: 10/17 15:39 Chief complaint: Let sided chest pain that radiates to left neck since this morning. hb Pain started as sharp, now feels tight. Coronavirus screen: At this time, the client does not indicate any symptoms associated with coronavirus-19. Ebola Screen: No symptoms or risks identified at this time. Initial Sepsis Screen: Does the patient meet any 2 criteria? No. Patient's initial sepsis screen is negative. Does the patient have a suspected source of infection? No. Patient's initial sepsis screen is negative. Risk Assessment: Do you want to hurt yourself or someone else? Patient reports no desire to harm self or others. Onset of symptoms was October 17, 2024. 15:39 Method Of Arrival: Ambulatory hb 15:39 Acuity: JOSSELYN 3 hb Historical: - Allergies: 15:40 No Known Allergies; hb - Home Meds: 15:40 losartan Oral [Active]; Metoprolol Tartrate Oral [Active]; hb - PMHx: 15:40 Hypertension; Anxiety; mass on heart; PE on right lung; hb - PSHx: 15:40 Tubal Ligation; hb - Immunization history:: Adult Immunizations up to date. - Infectious Disease History:: Denies. - Social history:: Smoking status: Patient reports the use of cigarette tobacco products, denies chronic smoking, but will smoke occasionally. Screenin:[address] [facility] ED Fall Risk Assessment (Adult) History of falling in the last 3 months, jb4 including since admission No falls in past 3 months (0 pts) Confusion or Disorientation No (0 pts) Intoxicated or Sedated No (0 pts) Impaired Gait No (0 pts) Mobility Assist Device Used No (0 pt) Altered Elimination No (0 pt) Score/Fall Risk Level 0 - 2 = Low Risk Oriented to surroundings, Maintained a safe environment. Abuse screen: Denies threats or abuse. Nutritional screening: No deficits noted. Tuberculosis screening: No symptoms or risk factors identified. Assessment: 16:43 General: Appears in no apparent distress. comfortable, Behavior is calm, cooperative, jb4 appropriate for age. Pain: Complains of pain in chest Pain radiates to neck Pain currently is 10 out of 10 on a pain scale. Pain began this morning. Neuro: Level of Consciousness is awake, alert, obeys commands, Oriented to person, place, time, situation. Cardiovascular: Patient's skin is warm and dry. Respiratory: Airway is patent Respiratory effort is even, unlabored, Respiratory pattern is regular, symmetrical. Derm: Skin is intact, Skin is pink, warm \T\ dry. 18:45 Reassessment: Patient appears in no apparent distress at this time. Patient and/or jb4 family updated on plan of care and expected duration. Pain level reassessed. Patient is alert, oriented x 3, equal unlabored respirations, skin warm/dry/pink. Vital Signs: 15:39 BP 141 / 94; Pulse 85; Resp 16; Temp 97.8; Pulse Ox 100% on R/A; Weight 86.18 kg; hb Height 5 ft. 2 in. ; Pain 10/10; 18:45 BP 119 / 84; Pulse 75; Resp 16; Pulse Ox 97% on R/A; jb4 15:39 Body Mass Index 34.75 (86.18 kg, 157.48 cm) hb 15:39 Pain Scale: Adult hb ED Course: 15:29 Patient arrived in ED. cj3 15:31 Sandra Child PA-C is PHCP. sb4 15:31 Tanja Burkett MD is Attending Physician. sb4 15:40 Triage completed. hb 15:41 Arm band placed on. hb 16:27 Extrem Venous W Compression Nemesio US In Process Unspecified. EDMS 16:37 XRAY Chest (1 view) In Process Unspecified. EDMS 16:42 Basic Metabolic Panel Sent. ty 16:42 CBC with Diff Sent. ty 16:42 LFT's Sent. ty 16:42 Magnesium Sent. ty 16:42 NT PRO-BNP Sent. ty 16:42 PT-INR Sent. ty 16:42 Troponin HS Sent. ty 16:42 Inserted saline lock: 20 gauge in right antecubital area, using aseptic technique. ty Blood collected. Flushed with 10 mL NS. 16:43 Patient has correct armband on for positive identification. Bed in low position. Call jb4 light in reach. Side rails up X 1. Provided Education on: plan of care. Client placed on continuous cardiac and pulse oximetry monitoring. NIBP monitoring applied. threat monitoring analyst on. Pulse ox on. 16:43 No provider procedures requiring assistance completed. Patient maintains SpO2 jb4 saturation greater than 95% on room air. 18:45 IV discontinued, intact, bleeding controlled, No redness/swelling at site. Pressure jb4 dressing applied. 18:55 Viraj Crowe MD is Referral Physician. sb4 Administered Medications: 17:43 Drug: NS 0.9% IV 1000 ml IV at 1 bolus Per protocol; to be given as a bolus over 60 jb4 minutes Route: IV; Rate: 1 bolus; Site: right antecubital; 17:43 Drug: Potassium PO Effervescent Tablet 50 mEq PO once; dissolve in 4 ounces of water or jb4 juice Route: PO; Medication: 16:43 VIS not applicable for this client. jb4 Outcome: 18:45 Discharged to home ambulatory, jb4 18:45 Condition: stable 18:45 Discharge instructions given to patient, Instructed on discharge instructions, follow up and referral plans. Demonstrated understanding of instructions, follow-up care, 18:55 Discharge ordered by sb4 19:58 Patient left the ED. jb4 Signatures: Dispatcher [employer] EDMS Funmilayo Shepard RN RN hb Bryson, James, RN RN [email or web address] Sandra Child PA-C PA-C sb4 Jack Pickens Celeste cj3 Corrections: (The following items were deleted from the chart) 15:41 15:40 Allergies: No Known Allergies; hb hb 15:41 15:40 Allergies: Vicodin; hb hb 15:41 15:40 Allergies: HYDROCODONE; hb hb
--- NOTE | 2024-10-17 18:55 | EDPHYS ---
Physician Documentation [facility] Name: Yesenia Lawton Age: 59 yrs Sex: Female : 1965 Arrival Date: 10/17/2024 Time: 15:25 Bed 26 Private MD: ED Physician Tanja Burkett HPI: 10/17 19:28 This 59 yrs old Black Female presents to ER via Ambulatory with complaints of Chest sb4 Pain. 19:28 Patient states that she had an episode of left-sided chest pain while at work this sb4 morning. States that it radiated up to the left side of her neck. States that it has since resolved but now she feels like her chest is kind of tight. Denies any dizziness, shortness of breath, nausea, vomiting. denies any history of coronary artery disease. 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 Has not been on anticoagulation therapy for several years now. Historical: - Allergies: 15:40 No Known Allergies; hb - Home Meds: 15:40 losartan Oral [Active]; Metoprolol Tartrate Oral [Active]; hb - PMHx: 15:40 Hypertension; Anxiety; mass on heart; PE on right lung; hb - PSHx: 15:40 Tubal Ligation; hb - Immunization history:: Adult Immunizations up to date. - Infectious Disease History:: Denies. - Social history:: Smoking status: Patient reports the use of cigarette tobacco products, denies chronic smoking, but will smoke occasionally. ROS: 19:28 Constitutional: Negative for fever, chills, and weight loss, sb4 19:28 Cardiovascular: Positive for chest pain, 19:28 All other systems are negative, Exam: 19:28 Constitutional: This is a well developed, well nourished patient who is awake, alert, sb4 and in no acute distress. Head/Face: Normocephalic, atraumatic. Eyes: Extra-ocular motions intact. Periorbital areas with no swelling, redness, or edema. ENT: Mucous membranes moist. Cardiovascular: Regular rate and rhythm with a normal S1 and S2. Respiratory: No increased work of breathing, no retractions or nasal flaring. Abdomen/GI: Soft, non-tender, no distension. Skin: Warm, dry with normal turgor. Normal color with no rashes, no lesions, and no evidence of cellulitis. Vital Signs: 15:39 BP 141 / 94; Pulse 85; Resp 16; Temp 97.8; Pulse Ox 100% on R/A; Weight 86.18 kg; hb Height 5 ft. 2 in. ; Pain 10/10; 18:45 BP 119 / 84; Pulse 75; Resp 16; Pulse Ox 97% on R/A; jb4 15:39 Body Mass Index 34.75 (86.18 kg, 157.48 cm) hb 15:39 Pain Scale: Adult hb MDM: 15:42 Medical Screening Exam initiated sb4 19:28 Differential diagnosis: ACS, anxiety, abnormal EKG, cardiac arrhythmia, pneumonia, sb4 dehydration, angina. Data reviewed: vital signs, nurses notes, lab test result(s), EKG, radiologic studies, and as a result, I will discharge patient. Consideration of Admission/Observation Escalation of care including admission/observation considered. Care significantly affected by the following chronic conditions: Hypertension. Scoring Tools HEART Score: History: ECG: Age: Risk Factors: 1 or 2 risk factors (1), Troponin: Total Score = 3. 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 Special discussion: Based on the patient's history, exam, and Dx evaluation, there is no indication for emergent intervention or inpatient Tx. It is understood by the patient/guardian that if the Sx's persist or worsen they need to return immediately for re-evaluation. ED course: Patient states her symptoms have improved, she is requesting to be discharged at this time. Her workup is unremarkable. Troponin is negative x 2. Replenished potassium and provided IV hydration. Advised cardiology follow-up and to return to the ED for any new or worsening symptoms. She understands and is in agreement with plan. Will safely discharge home at this time. 10/17 15:52 Order name: Basic Metabolic Panel; Complete Time: 17:06 sb4 10/17 15:52 Order name: CBC with Diff; Complete Time: 16:57 sb4 10/17 15:52 Order name: LFT's; Complete Time: 17:06 sb4 10/17 15:52 Order name: Magnesium; Complete Time: 17:06 sb4 10/17 15:52 Order name: NT PRO-BNP; Complete Time: 17:06 sb4 10/17 15:52 Order name: PT-INR; Complete Time: 16:57 sb4 10/17 15:52 Order name: Troponin HS; Complete Time: 17:06 sb4 10/17 17:49 Order name: Troponin High Sensitivity; Complete Time: 18:53 sb4 10/17 15:52 Order name: XRAY Chest (1 view); Complete Time: 17:42 sb4 10/17 15:52 Order name: Extrem Venous W Compression Nemesio US; Complete Time: 17:40 sb4 10/17 15:52 Order name: EKG; Complete Time: 15:53 sb4 10/17 15:52 Order name: Cardiac monitoring; Complete Time: 16:42 sb4 10/17 15:52 Order name: EKG - Nurse/Tech; Complete Time: 16:42 sb4 10/17 15:52 Order name: IV Saline Lock; Complete Time: 16:42 sb4 10/17 15:52 Order name: Labs collected and sent; Complete Time: 16:42 sb4 10/17 15:52 Order name: O2 Per Protocol; Complete Time: 16:42 sb4 10/17 15:52 Order name: O2 Sat Monitoring; Complete Time: 16:42 sb4 EC:54 Rate is 87 beats/min. Rhythm is irregular, Sinus arrythmia. UT interval is normal at sb4 150 msec. QRS interval is normal at 76 msec. QT interval is normal at 374 msec. No Q waves. T waves are Normal. No ST changes noted. Clinical impression: Sinus arrythmia. Interpreted by me. Reviewed by me. Administered Medications: 17:43 Drug: NS 0.9% IV 1000 ml IV at 1 bolus Per protocol; to be given as a bolus over 60 jb4 minutes Route: IV; Rate: 1 bolus; Site: right antecubital; 17:43 Drug: Potassium PO Effervescent Tablet 50 mEq PO once; dissolve in 4 ounces of water or jb4 juice Route: PO; Disposition Summary: 10/17/24 18:55 Discharge Ordered Notes: Location: Home sb4 Problem: new sb4 Symptoms: have improved sb4 Condition: Stable sb4 Diagnosis - Chest pain, unspecified sb4 Followup: sb4 - With: Viraj Crowe MD - When: As needed - Reason: Recheck today's complaints, Re-evaluation by your physician Discharge Instructions: - Discharge Summary Sheet sb4 - Nonspecific Chest Pain, Adult, [id number] sb4 Forms: - Patient Portal Instructions sb4 - Leadership Thank You Letter sb4 Signatures: 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 EDMS EDMS 15:53 15:53 CBC+H.LAB.BRZ ordered. EDMS EDMS 15:53 15:53 HEPATIC FUNCTION+C.LAB.BRZ ordered. EDMS EDMS 15:53 15:53 MAGNESIUM+C.LAB.BRZ ordered. EDMS EDMS 15:53 15:53 PROBNP+C.LAB.BRZ ordered. EDMS EDMS 15:53 15:53 PROTIME (+INR)+COAG.LAB.BRZ ordered. EDMS EDMS 15:53 15:53 Troponin High Sensitivity+C.LAB.BRZ ordered. EDMS EDMS
[2024-10-17 20:34] VITALS: TEMP 97.8
[2024-10-17 20:35] VITALS: BP 119/84; O2SAT 97
== END 2024-10-17 19:58 | disposition home or self-care (01) ==
LOC: ER 15:25
DX: R07.89 Other chest pain (principal); I10 Essential (primary) hypertension; Z86.711 Personal history of pulmonary embolism; F17.210 Nicotine dependence, cigarettes, uncomplicated
CPT/HCPCS: 93005; 85025; 80048; 36415; 83735; 85610; 80076; 84484 ×2; 83880; 71045; 93970; 99285; J7030